=== PATIENT | female | born 1995 | race Caucasian/White ===

== ENCOUNTER 2018-03-10 18:29 | Emergency (ER) | payer MEDICAID ==
[2018-03-10] MEDS ORDERED: Sodium Chloride 0.9% 1,000 ML IV ONE (19:06)
[2018-03-10] MEDS ORDERED: Sodium Chloride 0.9% 10 ML Syringe FLUSH PRN (19:06)
[2018-03-10] MEDS ORDERED: Sodium Chloride 0.9% 2.5 ML Syringe FLUSH PRN (19:06)
--- NOTE | 2018-03-10 19:07 | EDM.PDOC ---
ED HPI GENERAL MEDICAL PROBLEM - General Chief Complaint: Headache Time Seen by Provider: 03/10/18 19:23 Source of Information: Reports: Patient History Limitations: Reports: No Limitations - History of Present Illness INITIAL COMMENTS - FREE TEXT/NARRATIVE: HISTORY AND PHYSICAL: History of present illness: Patient is a 22-year-old female here with concern that she has meningitis. She states that over the past 2 weeks she has not been feeling well, has had headaches, neck pain, back pain, nausea, chills. She notes she also had a little bit of a cough, runny nose and sinus congestion. She reports that she has had a few intermittent episodes of vomiting and states she vomited twice today. She states that today she was at work and started feeling lightheaded and a headache coming on and states she passed out. She denies any head injury. She denies any abdominal pain, chest pain, shortness of breath, fevers. Patient states she is UTD on meningococcal vaccination. Review of systems: As per history of present illness and below otherwise all systems reviewed and negative. Past medical history: As per history of present illness and as reviewed below otherwise noncontributory. Surgical history: As per history of present illness and as reviewed below otherwise noncontributory. Social history: No reported history of drug or alcohol abuse. Family history: As per history of present illness and as reviewed below otherwise noncontributory. Physical exam: General: Patient sitting comfortably in no acute distress and nontoxic appearing HEENT: Atraumatic, normocephalic, pupils reactive, negative for conjunctival pallor or scleral icterus, mucous membranes moist, throat clear, neck supple, nontender, trachea midline. No meningeal signs. Lungs: Clear to auscultation, breath sounds equal bilaterally, chest nontender. Heart: S1S2, regular, negative for clicks, rubs, or overt murmur. Abdomen: Soft, nondistended, nontender. Negative for masses or hepatosplenomegaly. Negative for costovertebral tenderness. Pelvis: Stable nontender. Genitourinary: Deferred. Rectal: Deferred. Spine: Normal flexion, extension, and rotation of cervical spine. Tender to palpation of cervical and thoracic paraspinals. No spinous process tenderness Extremities: Atraumatic, negative for cords or calf pain. Neurovascular unremarkable. Neuro: Awake, alert, oriented. Cranial nerves II through XII unremarkable. Cerebellum unremarkable. Motor and sensory unremarkable throughout. Exam nonfocal. Notes: Diagnostics: CBC, CMP, troponin, UA, UC, urine hcg, EKG Therapeutics: 1L NS IV 30mg Toradol IV 4mg Zofran IV Prescriptions: Flexeril Diclofenac Impression: Headache, cervical and thoracic muscle spasms, viral URI, vasovagal syncope Plan: 1. Take medications as instructed. 2. Follow up with primary care provider 3. Return to ED as needed as discussed Definitive disposition and diagnosis as appropriate pending reevaluation and review of above. head Pain Score (Numeric/FACES): 7 Back Pain Score (Numeric/FACES): 4 - Related Data Allergies Allergy/AdvReac Type Severity Reaction Status Date / Time No Known Allergies Allergy Verified 03/10/18 18:58 Home Meds: Home Meds Ascorbic Acid [Vitamin C] 1 tab PO DAILY 03/10/18 [History] Cyanocobalamin (Vitamin B12) [Vitamin B12] 1 tab PO DAILY 03/10/18 [History] Mv-Min/Iron/Folic/Calcium/Vitk [Women's Multivitamin Tablet] 1 tab PO DAILY [History] Social & Family History - Tobacco Use Smoking Status *Q: Former Smoker Used Tobacco, but Quit: Yes Month/Year Tobacco Last Used: 1 - Recreational Drug Use Recreational Drug Use: No ED ROS GENERAL - Review of Systems Review Of Systems: ROS reveals no pertinent complaints other than HPI. - Physical Exam Exam: See Below (see dictation) Course - Vital Signs Last Recorded V/S: Last Vital Signs Temp 36.6 C 03/10/18 18:55 Pulse 66 03/10/18 18:55 Resp 18 03/10/18 18:55 BP 109/59 L 03/10/18 18:55 Pulse Ox 99 03/10/18 18:55 - Orders/Labs/Meds Orders: Active Orders 24 hr Category Date Time Status EKG Documentation Completion [RC] STAT Care 03/10/18 19:06 Active CULTURE STREP A CONFIRMATION [] Stat Lab 03/10/18 19:30 Results STREP SCRN A RAPID W CULT CONF [RM] Stat Lab 03/10/18 19:30 Results Sodium Chloride 0.9% [Saline Flush] Med 03/10/18 19:06 Active 10 ml FLUSH ASDIRECTED PRN Sodium Chloride 0.9% [Saline Flush] Med 03/10/18 19:06 Active 2.5 ml FLUSH ASDIRECTED PRN Saline Lock Insert [OM.PC] Stat Oth 03/10/18 19:06 Ordered Medication Orders Sodium Chloride (Saline Flush) 10 ml FLUSH ASDIRECTED PRN PRN Reason: Keep Vein Open Sodium Chloride (Saline Flush) 2.5 ml FLUSH ASDIRECTED PRN PRN Reason: Keep Vein Open Labs: Laboratory Tests 03/10/18 03/10/18 03/10/18 Range/Units 19:30 19:30 19:30 WBC 6.56 (4.0-11.0) K/uL RBC 4.75 (4.30-5.90) M/uL Hgb 12.4 (12.0-16.0) g/dL Hct 38.2 (36.0-46.0) % MCV 80.4 (80.0-98.0) fL MCH 26.1 L (27.0-32.0) pg MCHC 32.5 (31.0-37.0) g/dL RDW Std Deviation 35.0 (28.0-62.0) fl RDW Coeff of Kamaljit 12 (11.0-15.0) % Plt Count 216 (150-400) K/uL MPV 10.30 (7.40-12.00) fL Neut % (Auto) 47.1 L (48.0-80.0) % Lymph % (Auto) 43.0 H (16.0-40.0) % [place] % (Auto) 8.4 (0.0-15.0) % Eos % (Auto) 1.2 (0.0-7.0) % Baso % (Auto) 0.3 (0.0-1.5) % Neut # (Auto) 3.1 (1.4-5.7) K/uL Lymph # (Auto) 2.8 H (0.6-2.4) K/uL [place] # (Auto) 0.6 (0.0-0.8) K/uL Eos # (Auto) 0.1 (0.0-0.7) K/uL Baso # (Auto) 0.0 (0.0-0.1) K/uL Nucleated RBC % 0.0 /100WBC Nucleated RBCs # 0 K/uL Sodium 139 (136-145) mmol/L Potassium 3.9 (3.5-5.1) mmol/L Chloride 104 (98-107) mmol/L Carbon Dioxide 24.5 (21.0-32.0) mmol/L BUN 10 (7.0-18.0) mg/dL Creatinine 0.7 (0.6-1.0) mg/dL Est Cr Clr Drug Dosing 95.93 mL/min Estimated GFR (MDRD) > 60.0 ml/min Glucose 87 (74-106) mg/dL Calcium 8.9 (8.5-10.1) mg/dL Total Bilirubin 0.4 (0.2-1.0) mg/dL AST 21 (15-37) IU/L ALT 30 (14-63) IU/L Alkaline Phosphatase 47 (46-116) U/L Troponin I < 0.050 (0.000-0.056) ng/mL Total Protein 7.4 (6.4-8.2) g/dL Albumin 3.6 (3.4-5.0) g/dL Globulin 3.8 H (2.0-3.5) g/dL Albumin/Globulin Ratio 1.0 L (1.3-2.8) Urine Color YELLOW Urine Appearance CLEAR Urine pH 7.0 (5.0-8.0) Ur Specific [place] 1.020 (1.001-1.035) Urine Protein NEGATIVE (NEGATIVE) mg/dL Urine Glucose (UA) NEGATIVE (NEGATIVE) mg/dL Urine Ketones NEGATIVE (NEGATIVE) mg/dL Urine Occult Blood NEGATIVE (NEGATIVE) Urine Nitrite NEGATIVE (NEGATIVE) Urine Bilirubin NEGATIVE (NEGATIVE) Urine Urobilinogen 0.2 (<2.0) EU/dL Ur Leukocyte Esterase NEGATIVE (NEGATIVE) Urine RBC 0-1 (0-2/HPF) Urine WBC 0-2 (0-5/HPF) Ur Epithelial Cells MODERATE (NONE-FEW) Urine Bacteria FEW (NEGATIVE) Urine Mucus MODERATE (NONE-MOD) Urine HCG, Qual (NEGATIVE) 03/10/18 Range/Units 19:30 WBC (4.0-11.0) K/uL RBC (4.30-5.90) M/uL Hgb (12.0-16.0) g/dL Hct (36.0-46.0) % MCV (80.0-98.0) fL MCH (27.0-32.0) pg MCHC (31.0-37.0) g/dL RDW Std Deviation (28.0-62.0) fl RDW Coeff of Kamaljit (11.0-15.0) % Plt Count (150-400) K/uL MPV (7.40-12.00) fL Neut % (Auto) (48.0-80.0) % Lymph % (Auto) (16.0-40.0) % [place] % (Auto) (0.0-15.0) % Eos % (Auto) (0.0-7.0) % Baso % (Auto) (0.0-1.5) % Neut # (Auto) (1.4-5.7) K/uL Lymph # (Auto) (0.6-2.4) K/uL [place] # (Auto) (0.0-0.8) K/uL Eos # (Auto) (0.0-0.7) K/uL Baso # (Auto) (0.0-0.1) K/uL Nucleated RBC % /100WBC Nucleated RBCs # K/uL Sodium (136-145) mmol/L Potassium (3.5-5.1) mmol/L Chloride (98-107) mmol/L Carbon Dioxide (21.0-32.0) mmol/L BUN (7.0-18.0) mg/dL Creatinine (0.6-1.0) mg/dL Est Cr Clr Drug Dosing mL/min Estimated GFR (MDRD) ml/min Glucose (74-106) mg/dL Calcium (8.5-10.1) mg/dL Total Bilirubin (0.2-1.0) mg/dL AST (15-37) IU/L ALT (14-63) IU/L Alkaline Phosphatase (46-116) U/L Troponin I (0.000-0.056) ng/mL Total Protein (6.4-8.2) g/dL Albumin (3.4-5.0) g/dL Globulin (2.0-3.5) g/dL Albumin/Globulin Ratio (1.3-2.8) Urine Color Urine Appearance Urine pH (5.0-8.0) Ur Specific [place] (1.001-1.035) Urine Protein (NEGATIVE) mg/dL Urine Glucose (UA) (NEGATIVE) mg/dL Urine Ketones (NEGATIVE) mg/dL Urine Occult Blood (NEGATIVE) Urine Nitrite (NEGATIVE) Urine Bilirubin (NEGATIVE) Urine Urobilinogen (<2.0) EU/dL Ur Leukocyte Esterase (NEGATIVE) Urine RBC (0-2/HPF) Urine WBC (0-5/HPF) Ur Epithelial Cells (NONE-FEW) Urine Bacteria (NEGATIVE) Urine Mucus (NONE-MOD) Urine HCG, Qual NEGATIVE (NEGATIVE) Meds: Medications Generic Name Dose Route Start Last Admin Trade Name Freq PRN Reason Stop Dose Admin Sodium Chloride 10 ml 03/10/18 19:06 Saline Flush FLUSH ASDIRECTED PRN Keep Vein Open Sodium Chloride 2.5 ml 03/10/18 19:06 Saline Flush FLUSH ASDIRECTED PRN Keep Vein Open Discontinued Medications Generic Name Dose Route Start Last Admin Trade Name Freq PRN Reason Stop Dose Admin Sodium Chloride 1,000 mls @ 999 mls/hr 03/10/18 19:06 03/10/18 19:45 Normal Saline IV 03/10/18 20:06 999 mls/hr STAT ONE Administration Ketorolac Tromethamine 30 mg 03/10/18 19:47 Toradol IVPUSH 03/10/18 19:48 ONETIME ONE Ondansetron HCl 4 mg 03/10/18 19:47 Zofran IVPUSH 03/10/18 19:48 ONETIME ONE Departure - Departure Time of Disposition: 20:26 Disposition: Home, Self-Care 01 Condition: Good Clinical Impression: Headache, Cervical paraspinal muscle spasm, Spasm of thoracic back muscle, Viral URI, Vasovagal syncope - Discharge Information Referrals: PCP,None [Primary Care Provider] - Forms: ED Department Discharge Additional Instructions: The following information is given to patients seen in the emergency department who are being discharged to home. This information is to outline your options for follow-up care. We provide all patients seen in our emergency department with a follow-up referral. The need for follow-up, as well as the timing and circumstances, are variable depending upon the specifics of your emergency department visit. If you don't have a primary care physician on staff, we will provide you with a referral. We always advise you to contact your personal physician following an emergency department visit to inform them of the circumstance of the visit and for follow-up with them and/or the need for any referrals to a consulting specialist. The emergency department will also refer you to a specialist when appropriate. This referral assures that you have the opportunity for follow-up care with a specialist. All of these measure are taken in an effort to provide you with optimal care, which includes your follow-up. Under all circumstances we always encourage you to contact your private physician who remains a resource for coordinating your care. When calling for follow-up care, please make the office aware that this follow-up is from your recent emergency room visit. If for any reason you are refused follow-up, please contact the [facility] Emergency Department at and asked to speak to the emergency department charge nurse. [facility] [address] [place] [id number] [facility] [address] [place] [id number] 1. Take medications as instructed. 2. Follow up with primary care provider 3. Return to ED as needed as discussed - My Orders Last 24 Hours: My Active Orders 03/10/18 19:06 EKG Documentation Completion [RC] STAT Sodium Chloride 0.9% [Saline Flush] 10 ml FLUSH ASDIRECTED PRN Sodium Chloride 0.9% [Saline Flush] 2.5 ml FLUSH ASDIRECTED PRN Saline Lock Insert [OM.PC] Stat 03/10/18 19:30 CULTURE STREP A CONFIRMATION [RM] Stat STREP SCRN A RAPID W CULT CONF [RM] Stat - Assessment/Plan Last 24 Hours: My Active Orders 03/10/18 19:06 EKG Documentation Completion [RC] STAT Sodium Chloride 0.9% [Saline Flush] 10 ml FLUSH ASDIRECTED PRN Sodium Chloride 0.9% [Saline Flush] 2.5 ml FLUSH ASDIRECTED PRN Saline Lock Insert [OM.PC] Stat 03/10/18 19:30 CULTURE STREP A CONFIRMATION [RM] Stat STREP SCRN A RAPID W CULT CONF [RM] Stat
[2018-03-10] MEDS ORDERED: Ondansetron 4 MG/2 ML SDV IVPUSH ONE (19:47)
[2018-03-10] MEDS ORDERED: Ketorolac 30 MG/ML SDV IVPUSH ONE (19:47)
[2018-03-10 20:10] LABS: CHLORIDE,CL 104 mmol/L (98-107); SODIUM,NA 139 mmol/L (136-145)
== END 2018-03-10 21:00 | disposition home or self-care (01) ==
LOC: MW.ED 18:29
DX: M62.830 Muscle spasm of back (principal); M62.838 Other muscle spasm; J06.9 Acute upper respiratory infection, unspecified; R55 Syncope and collapse; Z79.899 Other long term (current) drug therapy; Z87.891 Personal history of nicotine dependence
CPT/HCPCS: 80053; 81001; 81025; 84484; 85025; 87081; 87804; 87880; 93005; 96361; 96374; 96375; 99284; J1885; J2405; J7040; 99283

== ENCOUNTER 2018-06-24 11:28 | Emergency (ER) | payer MEDICAID ==
--- NOTE | 2018-06-24 13:03 | EDM.PDOC ---
ED HPI GENERAL MEDICAL PROBLEM - General Chief Complaint: ENT Problem Stated Complaint: SORE THROAT Time Seen by Provider: 06/24/18 12:58 Source of Information: Reports: Patient History Limitations: Reports: No Limitations - History of Present Illness INITIAL COMMENTS - FREE TEXT/NARRATIVE: History of present illness: []Patient has frequent throat infections and is requesting a referral to get her tonsils out. For the past 4 days she's had a sore throat that is not subsiding. She denies any difficulty breathing has no vocal changes or difficulty swallowing. Review of systems: As per history of present illness and below otherwise all systems reviewed and negative. Past medical history: As per history of present illness and as reviewed below otherwise noncontributory. Surgical history: As per history of present illness and as reviewed below otherwise noncontributory. Social history: No reported history of drug or alcohol abuse. Family history: As per history of present illness and as reviewed below otherwise noncontributory. Physical exam: General: Well developed, well nourished in NAD HEENT: Atraumatic, normocephalic, pupils reactive, negative for conjunctival pallor or scleral icterus, mucous membranes moist, throat erythematous with no exudate, neck supple, nontender, trachea midline. No stridor Lungs: Clear to auscultation, breath sounds equal bilaterally, chest nontender. Heart: S1S2, regular, negative for clicks, rubs, or JVD. Abdomen: NABS, Soft, nondistended, nontender. Negative for masses or hepatosplenomegaly. Negative for costovertebral tenderness. Pelvis: Stable nontender. Genitourinary: Deferred. Rectal: Deferred. Extremities: Atraumatic, negative for cords or calf pain. Neurovascular unremarkable. Neuro: Awake, alert, oriented. Cranial nerves II through XII unremarkable. Cerebellum unremarkable. Motor and sensory unremarkable throughout. Exam nonfocal. Skin:warm and dry Diagnostics: Rapid strep negative Therapeutics: None ED Course: Unremarkable Impression: Acute pharyngitis likely viral Prescriptions: None Plan: Salt water gargles, throat lozenges, Tylenol Motrin for pain, follow-up with ENT return to ER if symptoms worsen or change. Definitive disposition and diagnosis as appropriate pending reevaluation and review of above. Throat Pain Score (Numeric/FACES): 8 - Related Data Allergies Allergy/AdvReac Type Severity Reaction Status Date / Time No Known Allergies Allergy Verified 06/24/18 12:18 Home Meds: Home Meds Ascorbic Acid [Vitamin C] 1 tab PO DAILY 03/10/18 [History] Cyanocobalamin (Vitamin B12) [Vitamin B12] 1 tab PO DAILY 03/10/18 [History] Cyclobenzaprine [Flexeril] 10 mg PO BEDTIME #10 tab 03/10/18 [Rx] Diclofenac Sodium [Voltaren] 50 mg PO BID #30 tab.ec 03/10/18 [Rx] Mv-Min/Iron/Folic/Calcium/Vitk [Women's Multivitamin Tablet] 1 tab PO DAILY [History] Past Medical History - Past Health History Medical/Surgical History: Denies Medical/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 ED EXAM, ENT - Physical Exam Exam: See Below (See history of present illness) Course - Vital Signs Last Recorded V/S: Last Vital Signs Temp 98.0 F 06/24/18 12:15 Pulse 77 06/24/18 12:15 Resp 18 06/24/18 12:15 BP 117/59 L 06/24/18 12:15 Pulse Ox 100 06/24/18 12:15 - Orders/Labs/Meds Orders: Active Orders 24 hr Category Date Time Status CULTURE STREP A CONFIRMATION [] Stat Lab 06/24/18 12:18 Results STREP SCRN A RAPID W CULT CONF [] Stat Lab 06/24/18 12:18 Results Departure - Departure Time of Disposition: 13:02 Disposition: Home, Self-Care 01 Condition: Good Clinical Impression: Acute pharyngitis Qualifiers: Pharyngitis/tonsillitis etiology: unspecified etiology Qualified Code(s): J02.9 - Acute pharyngitis, unspecified - Discharge Information *PRESCRIPTION DRUG MONITORING PROGRAM REVIEWED*: No *COPY OF PRESCRIPTION DRUG MONITORING REPORT IN PATIENT ANUPAM: No Instructions: Pharyngitis Referrals: PCP,Unknown [Primary Care Provider] - Ann Del Castillo MD [Physician] - (Next available appointment) Forms: ED Department Discharge Additional Instructions: The following information is given to patients seen in the emergency department who are being discharged to home. This information is to outline your options for follow-up care. We provide all patients seen in our emergency department with a follow-up referral. The need for follow-up, as well as the timing and circumstances, are variable depending upon the specifics of your emergency department visit. If you don't have a primary care physician on staff, we will provide you with a referral. We always advise you to contact your personal physician following an emergency department visit to inform them of the circumstance of the visit and for follow-up with them and/or the need for any referrals to a consulting specialist. The emergency department will also refer you to a specialist when appropriate. This referral assures that you have the opportunity for follow-up care with a specialist. All of these measure are taken in an effort to provide you with optimal care, which includes your follow-up. Under all circumstances we always encourage you to contact your private physician who remains a resource for coordinating your care. When calling for follow-up care, please make the office aware that this follow-up is from your recent emergency room visit. If for any reason you are refused follow-up, please contact the [facility] Emergency Department at and asked to speak to the emergency department charge nurse. [facility] [address] [place] [id number]
== END 2018-06-24 13:13 | disposition home or self-care (01) ==
LOC: MW.ED 11:28
DX: J02.9 Acute pharyngitis, unspecified (principal); Z79.899 Other long term (current) drug therapy; Z87.891 Personal history of nicotine dependence
CPT/HCPCS: 87081; 87880-QW; 99283

== ENCOUNTER 2018-10-20 15:54 | Emergency (ER) | payer MEDICAID ==
[2018-10-20] MEDS ORDERED: Sodium Chloride 0.9% 10 ML Syringe FLUSH PRN (16:06)
[2018-10-20] MEDS ORDERED: Sodium Chloride 0.9% 1,000 ML IV ONE ×2 (16:06→17:25)
[2018-10-20] MEDS ORDERED: Ondansetron 4 MG/2 ML SDV IVPUSH ONE ×2 (16:06→17:09)
[2018-10-20] MEDS ORDERED: Sodium Chloride 0.9% 2.5 ML Syringe FLUSH PRN (16:06)
[2018-10-20] MEDS ORDERED: Morphine 4 MG/ML Syringe IVPUSH ONE (16:06)
--- NOTE | 2018-10-20 16:13 | EDM.PDOC ---
ED HPI GENERAL MEDICAL PROBLEM - General Chief Complaint: Gastrointestinal Problem Stated Complaint: VOMITING, HEADACHE, SHAKES, DIARRHEA Time Seen by Provider: 10/20/18 15:56 Source of Information: Reports: Patient History Limitations: Reports: No Limitations - History of Present Illness INITIAL COMMENTS - FREE TEXT/NARRATIVE: History of present illness: []Patient has had 3 days of nonbloody vomiting, green diarrhea with sharp, crampy abdominal pain, migraine headache, fevers and chills. She has not tried to eat or drink anything since last night at 9 PM. Patient states she was recently diagnosed with BV Tatiana Agustin had an ovarian cyst rupture while she was having imaging. She states she completed the antibiotics not having any abnormal discharge at this time. Review of systems: As per history of present illness and below otherwise all systems reviewed and negative. Past medical history: As per history of present illness and as reviewed below otherwise noncontributory. Surgical history: As per history of present illness and as reviewed below otherwise noncontributory. Social history: No reported history of drug or alcohol abuse. Family history: As per history of present illness and as reviewed below otherwise noncontributory. Physical exam: General: Well developed, well nourished in NAD HEENT: Atraumatic, normocephalic, pupils reactive, negative for conjunctival pallor or scleral icterus, mucous membranes moist, throat clear, neck supple, nontender, trachea midline. Lungs: Clear to auscultation, breath sounds equal bilaterally, chest nontender. Heart: S1S2, regular, negative for clicks, rubs, or JVD. Abdomen: NABS, Soft, nondistended, diffuse tenderness worse right lower quadrant without rebound or guarding. Negative for masses or hepatosplenomegaly. Negative for costovertebral tenderness. Pelvis: Stable nontender. Genitourinary: No cervical motion tenderness there is moderate discharge Rectal: Deferred. Extremities: Atraumatic, negative for cords or calf pain. Neurovascular unremarkable. Neuro: Awake, alert, oriented. Cranial nerves II through XII unremarkable. Cerebellum unremarkable. Motor and sensory unremarkable throughout. Exam nonfocal. Skin:warm and dry Diagnostics: CBC, chemistry, lipase, UA, GC, wet prep Therapeutics: Morphine, Zofran, IV fluids ED Course: Stable Impression: Bacterial vaginosis Prescriptions: Flagyl Plan: Follow-up women's health. Definitive disposition and diagnosis as appropriate pending reevaluation and review of above. 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: Musculoskeletal History: Reports: None Neurological History: Reports: None Psychiatric History: Reports: None Endocrine/Metabolic History: Reports: None Hematologic History: Reports: None Immunologic History: Reports: None Oncologic (Cancer) History: Reports: None Dermatologic History: Reports: None - Past Surgical History Head Surgeries/Procedures: Reports: None HEENT Surgical History: Reports: Oral Surgery Cardiovascular Surgical History: Reports: None Respiratory Surgical History: Reports: None GI Surgical History: Reports: None Female Surgical History: Reports: Section Endocrine Surgical History: Reports: None Neurological Surgical History: Reports: None Musculoskeletal Surgical History: Reports: None Oncologic Surgical History: Reports: None Dermatological Surgical History: Reports: None Social & Family History - Family History Family Medical History: Noncontributory - Tobacco Use Smoking Status *Q: Never Smoker - Caffeine Use Caffeine Use: Reports: Energy Drinks - Recreational Drug Use Recreational Drug Use: No ED ROS GENERAL - Review of Systems Review Of Systems: ROS reveals no pertinent complaints other than HPI. ED EXAM, GI/ABD - Physical Exam Exam: See Below (See history of present illness) Course - Vital Signs Last Recorded V/S: Last Vital Signs Temp 97.3 F 10/20/18 17:28 Pulse 71 10/20/18 18:13 Resp 16 10/20/18 18:13 BP 107/54 L 10/20/18 18:13 Pulse Ox 96 10/20/18 18:13 - Orders/Labs/Meds Orders: Active Orders 24 hr Category Date Time Status NPO [Nothing Per Oral Diet] [DIET] Diet 10/21/18 Breakfast Active CHLAMYDIA AND GONORRHEA BY [facility] Stat Lab 10/20/18 17:10 Received Sodium Chloride 0.9% [Saline Flush] Med 10/20/18 16:06 Active 10 ml FLUSH ASDIRECTED PRN Sodium Chloride 0.9% [Saline Flush] Med 10/20/18 16:06 Active 2.5 ml FLUSH ASDIRECTED PRN Saline Lock Insert [OM.PC] Stat Oth 10/20/18 16:06 Ordered Medication Orders Sodium Chloride (Saline Flush) 10 ml FLUSH ASDIRECTED PRN PRN Reason: Keep Vein Open Last Admin: 10/20/18 17:26 Dose: 10 ml Sodium Chloride (Saline Flush) 2.5 ml FLUSH ASDIRECTED PRN PRN Reason: Keep Vein Open Last Admin: 10/20/18 17:26 Dose: 2.5 ml Labs: Laboratory Tests 10/20/18 10/20/18 10/20/18 Range/Units 16:13 16:13 16:14 WBC 6.42 (4.0-11.0) K/uL RBC 4.64 (4.30-5.90) M/uL Hgb 12.1 (12.0-16.0) g/dL Hct 37.7 (36.0-46.0) % MCV 81.3 (80.0-98.0) fL MCH 26.1 L (27.0-32.0) pg MCHC 32.1 (31.0-37.0) g/dL RDW Std Deviation 38.4 (28.0-62.0) fl RDW Coeff of Kamaljit 13 (11.0-15.0) % Plt Count 229 (150-400) K/uL MPV 10.50 (7.40-12.00) fL Neut % (Auto) 71.3 (48.0-80.0) % Lymph % (Auto) 19.3 (16.0-40.0) % Angelina % (Auto) 9.0 (0.0-15.0) % Eos % (Auto) 0.2 (0.0-7.0) % Baso % (Auto) 0.2 (0.0-1.5) % Neut # (Auto) 4.6 (1.4-5.7) K/uL Lymph # (Auto) 1.2 (0.6-2.4) K/uL Angelina # (Auto) 0.6 (0.0-0.8) K/uL Eos # (Auto) 0.0 (0.0-0.7) K/uL Baso # (Auto) 0.0 (0.0-0.1) K/uL Nucleated RBC % 0.0 /100WBC Nucleated RBCs # 0 K/uL Sodium 138 (136-145) mmol/L Potassium 3.5 (3.5-5.1) mmol/L Chloride 101 (98-107) mmol/L Carbon Dioxide 25.9 (21.0-32.0) mmol/L BUN 14 (7.0-18.0) mg/dL Creatinine 0.9 (0.6-1.0) mg/dL Est Cr Clr Drug Dosing 77.55 mL/min Estimated GFR (MDRD) > 60.0 ml/min Glucose 104 (74-106) mg/dL Calcium 9.2 (8.5-10.1) mg/dL Total Bilirubin 0.3 (0.2-1.0) mg/dL AST 16 (15-37) IU/L ALT 19 (14-63) IU/L Alkaline Phosphatase 41 L (46-116) U/L Total Protein 7.8 (6.4-8.2) g/dL Albumin 3.5 (3.4-5.0) g/dL Globulin 4.3 H (2.6-4.0) g/dL Albumin/Globulin Ratio 0.8 L (0.9-1.6) Lipase 107 (73-393) U/L Urine Color YELLOW Urine Appearance CLEAR Urine pH 6.0 (5.0-8.0) Ur Specific Montgomery >= 1.030 (1.001-1.035) Urine Protein TRACE H (NEGATIVE) mg/dL Urine Glucose (UA) NEGATIVE (NEGATIVE) mg/dL Urine Ketones 40 H (NEGATIVE) mg/dL Urine Occult Blood MODERATE H (NEGATIVE) Urine Nitrite NEGATIVE (NEGATIVE) Urine Bilirubin NEGATIVE (NEGATIVE) Urine Urobilinogen 0.2 (<2.0) EU/dL Ur Leukocyte Esterase NEGATIVE (NEGATIVE) Urine RBC 0-2 (0-2/HPF) Urine WBC 0-1 (0-5/HPF) Ur Epithelial Cells OCCASIONAL (NONE-FEW) Calcium Oxalate Crystal FEW (NEGATIVE) Urine Bacteria RARE (NEGATIVE) Urine Mucus MODERATE (NONE-MOD) Urine HCG, Qual (NEGATIVE) Zaina species DNA (NEGATIVE) Gardnerella DNA Probe (NEGATIVE) Trichomonas DNA Probe (NEGATIVE) 10/20/18 10/20/18 Range/Units 16:14 17:10 WBC (4.0-11.0) K/uL RBC (4.30-5.90) M/uL Hgb (12.0-16.0) g/dL Hct (36.0-46.0) % MCV (80.0-98.0) fL MCH (27.0-32.0) pg MCHC (31.0-37.0) g/dL RDW Std Deviation (28.0-62.0) fl RDW Coeff of Kamaljit (11.0-15.0) % Plt Count (150-400) K/uL MPV (7.40-12.00) fL Neut % (Auto) (48.0-80.0) % Lymph % (Auto) (16.0-40.0) % Angelina % (Auto) (0.0-15.0) % Eos % (Auto) (0.0-7.0) % Baso % (Auto) (0.0-1.5) % Neut # (Auto) (1.4-5.7) K/uL Lymph # (Auto) (0.6-2.4) K/uL Angelina # (Auto) (0.0-0.8) K/uL Eos # (Auto) (0.0-0.7) K/uL Baso # (Auto) (0.0-0.1) K/uL Nucleated RBC % /100WBC Nucleated RBCs # K/uL Sodium (136-145) mmol/L Potassium (3.5-5.1) mmol/L Chloride (98-107) mmol/L Carbon Dioxide (21.0-32.0) mmol/L BUN (7.0-18.0) mg/dL Creatinine (0.6-1.0) mg/dL Est Cr Clr Drug Dosing mL/min Estimated GFR (MDRD) ml/min Glucose (74-106) mg/dL Calcium (8.5-10.1) mg/dL Total Bilirubin (0.2-1.0) mg/dL AST (15-37) IU/L ALT (14-63) IU/L Alkaline Phosphatase (46-116) U/L Total Protein (6.4-8.2) g/dL Albumin (3.4-5.0) g/dL Globulin (2.6-4.0) g/dL Albumin/Globulin Ratio (0.9-1.6) Lipase (73-393) U/L Urine Color Urine Appearance Urine pH (5.0-8.0) Ur Specific Montgomery (1.001-1.035) Urine Protein (NEGATIVE) mg/dL Urine Glucose (UA) (NEGATIVE) mg/dL Urine Ketones (NEGATIVE) mg/dL Urine Occult Blood (NEGATIVE) Urine Nitrite (NEGATIVE) Urine Bilirubin (NEGATIVE) Urine Urobilinogen (<2.0) EU/dL Ur Leukocyte Esterase (NEGATIVE) Urine RBC (0-2/HPF) Urine WBC (0-5/HPF) Ur Epithelial Cells (NONE-FEW) Calcium Oxalate Crystal (NEGATIVE) Urine Bacteria (NEGATIVE) Urine Mucus (NONE-MOD) Urine HCG, Qual NEGATIVE (NEGATIVE) Zaina species DNA NEGATIVE (NEGATIVE) Gardnerella DNA Probe POSITIVE H (NEGATIVE) Trichomonas DNA Probe NEGATIVE (NEGATIVE) Meds: Medications Generic Name Dose Route Start Last Admin Trade Name Freq PRN Reason Stop Dose Admin Sodium Chloride 10 ml 10/20/18 16:06 10/20/18 17:26 Saline Flush FLUSH 10 ml ASDIRECTED PRN Administration Keep Vein Open Sodium Chloride 2.5 ml 10/20/18 16:06 10/20/18 17:26 Saline Flush FLUSH 2.5 ml ASDIRECTED PRN Administration Keep Vein Open Discontinued Medications Generic Name Dose Route Start Last Admin Trade Name Freq PRN Reason Stop Dose Admin Sodium Chloride 1,000 mls @ 999 mls/hr 10/20/18 16:06 10/20/18 16:21 Normal Saline IV 10/20/18 17:06 999 mls/hr .Bolus ONE Administration Sodium Chloride 1,000 mls @ 999 mls/hr 10/20/18 17:25 10/20/18 17:25 Normal Saline IV 10/20/18 18:25 999 mls/hr .Bolus ONE Administration Ketorolac Tromethamine 30 mg 10/20/18 17:09 10/20/18 17:19 Toradol IVPUSH 10/20/18 17:10 30 mg ONETIME ONE Administration Morphine Sulfate 4 mg 10/20/18 16:06 10/20/18 16:24 Morphine IVPUSH 10/20/18 16:07 4 mg ONETIME ONE Administration Ondansetron HCl 4 mg 10/20/18 16:06 10/20/18 16:21 Zofran IVPUSH 10/20/18 16:07 4 mg ONETIME ONE Administration Ondansetron HCl 4 mg 10/20/18 17:09 10/20/18 17:22 Zofran IVPUSH 10/20/18 17:10 4 mg ONETIME ONE Administration Departure - Departure Time of Disposition: 18:55 Disposition: Home, Self-Care 01 Condition: Good Clinical Impression: BV (bacterial vaginosis) - Discharge Information *PRESCRIPTION DRUG MONITORING PROGRAM REVIEWED*: No *COPY OF PRESCRIPTION DRUG MONITORING REPORT IN PATIENT ANUPAM: No Prescriptions: metroNIDAZOLE [Flagyl] 500 mg PO Q8H #30 tab Instructions: Diarrhea, Adult, [id number] Referrals: PCP,Unknown [Primary Care Provider] - Forms: ED Department Discharge Additional Instructions: The following information is given to patients seen in the emergency department who are being discharged to home. This information is to outline your options for follow-up care. We provide all patients seen in our emergency department with a follow-up referral. The need for follow-up, as well as the timing and circumstances, are variable depending upon the specifics of your emergency department visit. If you don't have a primary care physician on staff, we will provide you with a referral. We always advise you to contact your personal physician following an emergency department visit to inform them of the circumstance of the visit and for follow-up with them and/or the need for any referrals to a consulting specialist. The emergency department will also refer you to a specialist when appropriate. This referral assures that you have the opportunity for follow-up care with a specialist. All of these measure are taken in an effort to provide you with optimal care, which includes your follow-up. Under all circumstances we always encourage you to contact your private physician who remains a resource for coordinating your care. When calling for follow-up care, please make the office aware that this follow-up is from your recent emergency room visit. If for any reason you are refused follow-up, please contact the [facility] Emergency Department at and asked to speak to the emergency department charge nurse. Take meds as directed, follow up with your primary care physician, return to ER if symptoms worsen or change. [facility] - Women's [facility] [address] [place] [id number] [facility] [address] [place] [id number] - My Orders Last 24 Hours: My Active Orders 10/20/18 16:06 Sodium Chloride 0.9% [Saline Flush] 10 ml FLUSH ASDIRECTED PRN Sodium Chloride 0.9% [Saline Flush] 2.5 ml FLUSH ASDIRECTED PRN Saline Lock Insert [OM.PC] Stat 10/20/18 17:10 CHLAMYDIA AND GONORRHEA BY [facility] Stat 10/21/18 Breakfast NPO [Nothing Per Oral Diet] [DIET] - Assessment/Plan Last 24 Hours: My Active Orders 10/20/18 16:06 Sodium Chloride 0.9% [Saline Flush] 10 ml FLUSH ASDIRECTED PRN Sodium Chloride 0.9% [Saline Flush] 2.5 ml FLUSH ASDIRECTED PRN Saline Lock Insert [OM.PC] Stat 10/20/18 17:10 CHLAMYDIA AND GONORRHEA BY [facility] Stat 10/21/18 Breakfast NPO [Nothing Per Oral Diet] [DIET]
[2018-10-20 16:48] LABS: CHLORIDE,CL 101 mmol/L (98-107); SODIUM,NA 138 mmol/L (136-145)
[2018-10-20] MEDS ORDERED: Ketorolac 30 MG/ML SDV IVPUSH ONE (17:09)
== END 2018-10-20 19:19 | disposition home or self-care (01) ==
LOC: MW.ED 15:54
DX: N76.0 Acute vaginitis (principal)
CPT/HCPCS: 36415; 80053; 81001; 81025; 83690; 85025; 87480; 87491; 87510; 87591; 87660; 96361; 96374; 96375; 96376; 99284; J1885; J2270; J2405; J7040; 99283

== ENCOUNTER 2019-08-19 14:48 | Emergency (ER) | payer MEDICAID ==
--- NOTE | 2019-08-19 16:06 | EDM.PDOC ---
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 Patient states she does not have any symptoms or concerns at this time but is a few days late on her menstrual cycle and wants to have a test. Patient states she took an at home test 5 days ago which was negative. Patient states she has not tried to retake 1 since. Patient denies any vaginal bleeding, discharge, or abdominal pain. Patient denies fever, chills, chest pain, shortness of breath, or cough. Denies headache, neck stiff ness, change in vision, syncope, or near syncope. Denies nausea, vomiting, abdominal pain, diarrhea, constipation, or dysuria. Has not noted any blood in urine or stool. Patient has been eating and drinking appropriately. Review of systems: As per history of present illness and below otherwise all systems reviewed and negative. Past medical history: As per history of present illness and as reviewed below otherwise noncontributory. Surgical history: As per history of present illness and as reviewed below otherwise noncontributory. Social history: See social history for further information Family history: As per history of present illness and as reviewed below otherwise noncontributory. Physical exam: General: Patient is alert, oriented, and in no acute distress. Patient sitting comfortably on exam table. HEENT: Atraumatic, normocephalic, pupils equal and reactive bilaterally, negative for conjunctival pallor or scleral icterus, mucous membranes moist, TMs normal bilaterally, throat clear, neck supple, nontender, trachea midline. No drooling or trismus noted. No meningeal signs. No hot potato voice noted. Lungs: Clear to auscultation, breath sounds equal bilaterally, chest nontender. Heart: S1S2, regular rate and rhythm without overt murmur Abdomen: Soft, nondistended, nontender. Negative for masses or hepatosplenomegaly. Negative for costovertebral tenderness. Pelvis: Stable nontender. Genitourinary: Deferred. Rectal: Deferred. Skin: Intact, warm, dry. No lesions or rashes noted. Extremities: Atraumatic, negative for cords or calf pain. Neurovascular unremarkable. Neuro: Awake, alert, oriented. Cranial nerves II through XII unremarkable. Cerebellum unremarkable. Motor and sensory unremarkable throughout. Exam nonfocal. Notes: Patient denies any symptomatic complaints today and is here with just a desire to have a test. Discussed with patient that she can take an [id number] test again if she desires to know if she is and that we only order test in the ED if we consider it emergent and that she can test for this at home. Voices understanding and is agreeable to plan of care. Denies any further questions or concerns at this time. Diagnostics: None Therapeutics: None Prescription: None Impression: Medical screening exam Plan: 1. You can take an at home [id number] test as discussed. Follow-up with a primary care provider or women's health provider as discussed. Return to the ED as needed and as discussed. Definitive disposition and diagnosis as appropriate pending reevaluation and review of above. - Related Data Allergies Allergy/AdvReac Type Severity Reaction Status Date / Time No Known Allergies Allergy Verified 10/20/18 16:04 Home Meds: Home Meds . 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: Musculoskeletal History: Reports: None Neurological History: Reports: None Psychiatric History: Reports: None Endocrine/Metabolic History: Reports: None Hematologic History: Reports: None Immunologic History: Reports: None Oncologic (Cancer) History: Reports: None Dermatologic History: Reports: None - Past Surgical History Head Surgeries/Procedures: Reports: None HEENT Surgical History: Reports: Oral Surgery Cardiovascular Surgical History: Reports: None Respiratory Surgical History: Reports: None GI Surgical History: Reports: None Female Surgical History: Reports: Section Endocrine Surgical History: Reports: None Neurological Surgical History: Reports: None Musculoskeletal Surgical History: Reports: None Oncologic Surgical History: Reports: None Dermatological Surgical History: Reports: None Social & Family History - Family History Family Medical History: Noncontributory - Tobacco Use Smoking Status *Q: Never Smoker - Caffeine Use Caffeine Use: Reports: Energy Drinks - Recreational Drug Use Recreational Drug Use: No ED ROS GENERAL - Review of Systems Review Of Systems: Comprehensive ROS is negative, except as noted in HPI. ED EXAM, GENERAL - Physical Exam Exam: See Below (see dictation) Course - Vital Signs Last Recorded V/S: Last Vital Signs Temp 98.7 F 08/19/19 15:42 Pulse 78 08/19/19 15:42 Resp 16 08/19/19 15:42 BP 137/52 L 08/19/19 15:42 Pulse Ox 98 08/19/19 15:42 Departure - Departure Time of Disposition: 16:03 Disposition: Home, Self-Care 01 Clinical Impression: Encounter for medical screening examination - Discharge Information Referrals: Chantell Landry NP [Primary Care Provider] - Additional Instructions: The following information is given to patients seen in the emergency department who are being discharged to home. This information is to outline your options for follow-up care. We provide all patients seen in our emergency department with a follow-up referral. The need for follow-up, as well as the timing and circumstances, are variable depending upon the specifics of your emergency department visit. If you don't have a primary care physician on staff, we will provide you with a referral. We always advise you to contact your personal physician following an emergency department visit to inform them of the circumstance of the visit and for follow-up with them and/or the need for any referrals to a consulting specialist. The emergency department will also refer you to a specialist when appropriate. This referral assures that you have the opportunity for follow-up care with a specialist. All of these measure are taken in an effort to provide you with optimal care, which includes your follow-up. Under all circumstances we always encourage you to contact your private physician who remains a resource for coordinating your care. When calling for follow-up care, please make the office aware that this follow-up is from your recent emergency room visit. If for any reason you are refused follow-up, please contact the [facility] Emergency Department at and asked to speak to the emergency department charge nurse. [facility] [address] [place] [id number] [facility] [address] [place] [id number] 1. You can take an at home [id number] test as discussed. Follow-up with a primary care provider or women's health provider as discussed. Return to the ED as needed and as discussed. Sepsis Event Note - Evaluation Sepsis Screening Result: No Definite Risk - Focused Exam Vital Signs: Vital Signs Temp Pulse Resp BP Pulse Ox 08/19/19 15:42 98.7 F 78 16 137/52 L 98 Date Exam was Performed: 08/19/19 Time Exam was Performed: 16:03
== END 2019-08-19 17:00 | disposition left against medical advice (07) ==
LOC: MW.ED 14:48
DX: Z32.02 Encounter for pregnancy test, result negative (principal)
CPT/HCPCS: 99281

== ENCOUNTER 2019-09-11 11:30 | Emergency (ER) | payer MEDICAID, OTHER ==
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
[2019-09-11] MEDS ORDERED: Ketorolac 60 MG/2 ML SDV IM ONE (11:44)
--- NOTE | 2019-09-11 12:09 | CR ---
Left knee: AP, lateral and sunrise patellar views of the left knee were obtained. Comparison: No prior knee exam. Patellofemoral joint appears within normal limits. Joint spaces within the medial and lateral joint compartments are maintained. No joint effusion is seen. No discrete fracture or other bony abnormality is appreciated. Impression: 1. No acute bony abnormality is appreciated. 2. If patient's symptoms appear to be soft tissue, MRI could then be considered if clinically needed. Diagnostic code #1 Study was dictated in MDT
== END 2019-09-11 12:34 | disposition home or self-care (01) ==
LOC: MW.ED 11:30
DX: S83.412A Sprain of medial collateral ligament of left knee, initial encounter (principal); V89.2XXA Person injured in unspecified motor-vehicle accident, traffic, initial encounter
CPT/HCPCS: 73562; 96372; 99283; J1885

== ENCOUNTER 2020-07-26 11:44 | Emergency (ER) | payer MEDICAID ==
[2020-07-26] MEDS ORDERED: Lidocaine/EPINEPHrine/Tetracaine Soln 1 ML TOP ONE (12:14)
[2020-07-26] MEDS ORDERED: Lidocaine 1% with EPINEPHrine 1:100,000 20 ML MDV INJECT ONE (12:17)
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
== END 2020-07-26 14:10 | disposition home or self-care (01) ==
LOC: MW.ED 11:44
DX: O22.40 Hemorrhoids in pregnancy, unspecified trimester (principal); Z86.16 Personal history of COVID-19
CPT/HCPCS: 46083; 99282-25

== ENCOUNTER 2020-09-04 05:26 | Inpatient (IN) | payer MEDICAID ==
[2020-09-04] MEDS ORDERED: ceFAZolin 2 GM in Premix Bag 1 BAG IV ONE (05:33)
[2020-09-04] MEDS ORDERED: Citric Acid/Sodium Citrate Solution 30 ML Cup PO ONE (05:33)
[2020-09-04] MEDS ORDERED: Sodium Chloride 0.9% 2.5 ML Syringe FLUSH PRN (05:33)
[2020-09-04] MEDS ORDERED: Sodium Chloride 0.9% 10 ML SDV IV PRN (05:33)
[2020-09-04] MEDS ORDERED: Sodium Chloride 0.9% 10 ML Syringe FLUSH PRN (05:33)
[2020-09-04] MEDS ORDERED: Oxytocin/0.9 % Sodium Chloride 30 UNIT/500 ML BAG IV SCH (05:45)
[2020-09-04] MEDS: Lactated Ringers 1,000 ML IV SCH ×2 (06:08→07:12)
[2020-09-04] MEDS ORDERED: Morphine PF 10 MG/10 ML SDV ONE (07:10)
[2020-09-04] MEDS ORDERED: Phenylephrine 1% 10 MG/ML SDV ONE (07:15)
[2020-09-04] MEDS ORDERED: Glycopyrrolate 0.2 MG/ML SDV ONE (07:15)
[2020-09-04] MEDS ORDERED: Ketorolac 30 MG/ML SDV ONE (07:15)
[2020-09-04] MEDS ORDERED: Oxytocin 10 Units/1 ML SDV ONE (07:15)
[2020-09-04] MEDS ORDERED: Ondansetron 4 MG/2 ML SDV ONE (07:15)
--- NOTE | 2020-09-04 07:18 | PCM.PREANE ---
Preanesthetic Assessment - Anesthesia/Transfusion/Family Hx Anesthesia History: Prior Anesthesia Without Reaction Family History of Anesthesia Reaction: No Transfusion History: No Prior Transfusion(s) Intubation History: Unknown - Review of Systems General: No Symptoms Pulmonary: No Symptoms Cardiovascular: No Symptoms Gastrointestinal: No Symptoms Neurological: No Symptoms Other: Reports: None - Physical Assessment Height: 5 ft 1.81 in Weight: 72.575 kg ASA Class: 2 Mental Status: Alert & Oriented x3 Airway Class: Mallampati = 2 Dentition: Reports: Normal Dentition Thyro-Mental Finger Breadths: 3 Mouth Opening Finger Breadths: 3 ROM/Head Extension: Full Lungs: Clear to Auscultation, Normal Respiratory Effort Cardiovascular: Regular Rate, Regular Rhythm - Lab Values: Laboratory Last Values WBC 12.01 K/uL (4.0-11.0) H 09/04/20 06:02 RBC 3.65 M/uL (4.30-5.90) L 09/04/20 06:02 Hgb 9.7 g/dL (12.0-16.0) L 09/04/20 06:02 Hct 30.2 % (36.0-46.0) L 09/04/20 06:02 MCV 82.7 fL (80.0-98.0) 09/04/20 06:02 MCH 26.6 pg (27.0-32.0) L 09/04/20 06:02 MCHC 32.1 g/dL (31.0-37.0) 09/04/20 06:02 RDW Std Deviation 40.0 fl (28.0-62.0) 09/04/20 06:02 RDW Coeff of Kamaljit 13 % (11.0-15.0) 09/04/20 06:02 Plt Count 302 K/uL (150-400) 09/04/20 06:02 MPV 10.40 fL (7.40-12.00) 09/04/20 06:02 Nucleated RBC % 0.0 /100WBC 09/04/20 06:02 Nucleated RBCs # 0 K/uL 09/04/20 06:02 - Allergies Allergies/Adverse Reactions: Allergies Allergy/AdvReac Type Severity Reaction Status Date / Time No Known Allergies Allergy Verified 08/29/20 10:13 - Blood Blood Available: No - Anesthesia Plan Pre-Op Medication Ordered: None - Acknowledgements Anesthesia Type Planned: Spinal (general anesthesia back-up plan) Pt an Appropriate Candidate for the Planned Anesthesia: Yes Alternatives and Risks of Anesthesia Discussed w Pt/Guardian: Yes Pt/Guardian Understands and Agrees with Anesthesia Plan: Yes PreAnesthesia Questionnaire - Past Health History Medical/Surgical History: Denies Medical/Surgical History HEENT History: Reports: None Cardiovascular History: Reports: None Other Cardiovascular History: hx tachycardia 2 years ago Respiratory History: Reports: None Other Respiratory History: Just off quarantine for positive COVID-19 exposure. 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 OB/BYN History: October 2015 Musculoskeletal History: Reports: None Other Musculoskeletal History: presently has torn ACL-left knee Neurological History: Reports: None Other Neuro History: "Major Concussion" Psychiatric History: Reports: None Endocrine/Metabolic History: Reports: None Hematologic History: Reports: None Immunologic History: Reports: None Oncologic (Cancer) History: Reports: None Dermatologic History: Reports: None - Infectious Disease History Infectious Disease History: Reports: Chicken Pox - Past Surgical History Head Surgeries/Procedures: Reports: None HEENT Surgical History: Reports: Oral Surgery Cardiovascular Surgical History: Reports: None Respiratory Surgical History: Reports: None GI Surgical History: Reports: None Other GI Surgeries/Procedures: umbilical hernia repair with mesh Female Surgical History: Reports: Section Endocrine Surgical History: Reports: None Neurological Surgical History: Reports: None Musculoskeletal Surgical History: Reports: None Oncologic Surgical History: Reports: None Dermatological Surgical History: Reports: None - SUBSTANCE USE Tobacco Use Status *Q: Former Tobacco User Tobacco Use Within Last Twelve Months: No - HOME MEDS Home Medications: Home Meds Aspirin 81 mg PO DAILY 07/26/20 [History] Iron 65 mg PO BID 07/26/20 [History] Pnv No.95/Ferrous Fum/Folic AC [ Multivitamin Tablet] 1 tab PO DAILY 08/21/20 [History] L.acidoph,Paracasei, B.lactis [Probiotic] 1 tab PO DAILY 08/29/20 [History] - CURRENT (IN HOUSE) MEDS Current Meds: Current Medications Oxytocin/Sodium Chloride (Oxytocin 30 Unit/500 Ml-Ns) 30 unit in 500 mls @ 250 mls/hr IV TITRATE ZITA Lactated Ringer's (Ringers, Lactated) 1,000 mls @ 500 mls/hr IV BOLUS [facility] Last Admin: 09/04/20 07:12 Dose: 500 mls/hr Documented by: Sodium Chloride (Sodium Chloride 0.9% 10 Ml Syringe) 10 ml FLUSH ASDIRECTED PRN PRN Reason: Keep Vein Open Sodium Chloride (Sodium Chloride 0.9% 2.5 Ml Syringe) 2.5 ml FLUSH ASDIRECTED PRN PRN Reason: Keep Vein Open Sodium Chloride (Sodium Chloride 0.9% 10 Ml Sdv) 10 ml IV ASDIRECTED PRN PRN Reason: IV Use Discontinued Medications Citric Acid/Sodium Citrate (Citric Acid/Sodium Citrate Solution 30 Ml Cup) 30 ml PO ONETIME ONE Stop: 09/04/20 05:34 Cefazolin Sodium/Dextrose 2 gm (/ Premix) 50 mls @ 100 mls/hr IV ONETIME ONE Stop: 09/04/20 06:02 Morphine Sulfate (Morphine Pf 10 Mg/10 Ml Sdv) Confirm Administered Dose 10 mg .ROUTE .STK-MED ONE Stop: 09/04/20 07:11
[2020-09-04] MEDS ORDERED: ceFAZolin 1 GM Vial ONE (07:41)
[2020-09-04] MEDS ORDERED: Sodium Chloride 0.9% 20 ML ONE (07:41)
[2020-09-04] MEDS ORDERED: Midazolam 1 MG/ML 2 ML SDV ONE (08:32)
[2020-09-04] MEDS ORDERED: fentaNYL 100 MCG/2 ML SDV IVPUSH PRN (08:36)
[2020-09-04] MEDS ORDERED: Acetaminophen/oxyCODONE 325-5 MG Tab PO PRN ×2 (08:36→09:11)
[2020-09-04] MEDS ORDERED: Ondansetron 4 MG/2 ML SDV IVPUSH PRN ×2 (08:36→09:11)
[2020-09-04] MEDS ORDERED: Naloxone 0.4 MG/ML Syringe IVPUSH PRN (08:36)
[2020-09-04] MEDS ORDERED: Nalbuphine 10 MG/1 ML Vial IVPUSH PRN (08:36)
[2020-09-04] MEDS ORDERED: diphenhydrAMINE 50 MG/ML SDV IVPUSH PRN ×2 (08:36→09:11)
[2020-09-04] MEDS: Ketorolac 30 MG/ML SDV IVPUSH SCH ×3 (08:55→21:13)
[2020-09-04] MEDS ORDERED: Methylergonovine 0.2 MG/1 ML Amp IM PRN (09:11)
[2020-09-04] MEDS ORDERED: Tranexamic Acid 1,000 MG in Sodium Chloride 0.9% 100 ML IV PRN (09:11)
[2020-09-04] MEDS ORDERED: Bisacodyl 10 MG Supp RECTAL PRN (09:11)
[2020-09-04] MEDS ORDERED: Oxytocin 10 Units/1 ML SDV IM PRN (09:11)
[2020-09-04] MEDS ORDERED: Misoprostol 200 MCG Tab RECTAL PRN (09:11)
[2020-09-04] MEDS ORDERED: Oxytocin/Lactated Ringers 30 UNIT/500 ML BAG IV SCH (09:15)
[2020-09-04] MEDS ORDERED: Lactated Ringers 1,000 ML IV SCH (09:15)
--- NOTE | 2020-09-04 09:19 | PCM.OPNOTE ---
- General Post-Op/Procedure Note Date of Surgery/Procedure: 09/04/20 Operative Procedure(s): Repeat lower transverse section Findings: Normal appearing male in cephalic presentation, occiput posterior. Clear amniotic fluid. APGARs 9/9. Weight 3590 grams. Normal appearing uterus, fallopian tubes and ovaries. Pre Op Diagnosis: 1. TIUP at 39w2d gestation. 2. Previous section x1, declines . 3. Anemia of . 4. COVID-19 infection during Post-Op Diagnosis: 1. TIUP at 39w2d gestation. 2. Previous section x1, declines . 3. Anemia of . 4. COVID-19 infection during Anesthesia Technique: Spinal Primary Surgeon: Kaylene Catherine Anesthesia Provider: Jake Burgos Fluid Replacement, Intraop: 500 (received 2,000cc preoperatively) Output, Urine Amount: 150 (clear urine at the end of procedure) EBL in mLs: 600 Complications: None known Condition: Good Free Text/Narrative:: Dictation #[id number]
--- NOTE | 2020-09-04 10:47 | OR ---
SURGEON: KAYLENE CATHERINE MD DATE OF PROCEDURE: 09/04/2020 PREOPERATIVE DIAGNOSES: 1. Term intrauterine at 39 weeks two days' gestation. 2. Previous section x1, declines vaginal after section. 3. Anemia of . 4. COVID-19 infection during . POSTOPERATIVE DIAGNOSES: 1. Term intrauterine at 39 weeks two days' gestation. 2. Previous section x1, declines vaginal after section. 3. Anemia of . 4. COVID-19 infection during . PROCEDURE: Repeat lower transverse section. PRIMARY SURGEON: Kaylene Catherine MD. ANESTHESIA: Spinal epidural. COMPLICATIONS: None known. ESTIMATED BLOOD LOSS: 500 mL. IV FLUIDS: 500 mL crystalloid received intraoperatively. 2000 mL of crystalloid received preoperatively. URINE OUTPUT: 150 mL of clear urine at the end of the procedure. INDICATIONS: A 24-year-old, 5, para 1-0-3-1 at 39 weeks two days' gestation with history of previous section and declines trial of labor after section. FINDINGS: Normal-appearing male infant, cephalic presentation, occiput posterior. Clear amniotic fluid. scores 9/9. Weight 3590 g. Normal-appearing uterus, fallopian tubes, and ovaries. PROCEDURE IN DETAIL: The patient was taken to the operating room where epidural anesthesia was found to be adequate. She was prepped and draped in a sterile fashion in a dorsal supine position with leftward tilt. A skin incision was made with a scalpel and carried down to the underlying layer of fascia which was incised in the midline. The fascial incision was then extended laterally with Moulton scissors bilaterally. The superior aspect of the fascial incision was then grasped with Teresa clamps, elevated, and dissected off the rectus muscles with Abigail. The inferior aspect of the fascial incision was then grasped with Teresa's, and in a likewise manner was elevated and dissected off with Mayos. The patient's peritoneum was then entered sharply with Metzenbaum scissors and extended with good visualization of the bladder. The Sacha O ring was then inserted at this time for retraction. The vesicouterine peritoneum was then identified, grasped with pickups, and entered sharp with Metzenbaum scissors. The bladder flap was then created digitally and retracted. The uterine incision was then created in transverse fashion in the lower uterine segment with a scalpel and extended digitally. The amniotic sac was incidentally AROM'd at this time. Clear fluid was noted. The infant's head delivered atraumatically. Nose and mouth suctioned with bulb. Cord clamped and cut. Handed off to awaiting nursing staff. The placenta was then expressed after obtaining cord blood gases. The uterus was then exteriorized from the abdomen and cleared of all clots and debris. The incision was then repaired in a running-locked fashion with 0 Monocryl. A second suture of the same was then used to imbricate the incision. Excellent hemostasis was noted. The uterus was then returned to the abdomen. Gutters were cleared of all clots and debris. The Sacha O ring was then removed. The peritoneum was then closed in a running fashion with 0 Vicryl. The fascia was then closed with 0 Vicryl in a running fashion. The incision was irrigated. Hemostasis was assured. Subcutaneous tissue was then closed with 0 Vicryl, and the skin was closed with 3-0 Vicryl on a Michael needle. Steri-Strips were then placed over the incision along with a pressure dressing. Sponge, lap, and needle count were correct x2. Prophylactic antibiotics were given prior to the procedure. The patient was taking back to Labor and Delivery room for recovery in stable condition. KB FUNEZ /[id number] GIRMA
[2020-09-04] MEDS: Ferrous Sulfate 325 MG Tab PO SCH (16:30)
[2020-09-04] MEDS: Docusate Sodium 100 MG Cap PO SCH (21:13)
[2020-09-05] MEDS: Ketorolac 30 MG/ML SDV IVPUSH SCH ×2 (03:12→09:12)
--- NOTE | 2020-09-05 08:50 | PCM.PNPP ---
- General Info Date of Service: 09/05/20 Admission Dx/Problem (Free Text): Scheduled repeat lower transverse section Subjective Update: Ambulating about room during rounds. Pain well controlled. Lochia decreasing. Ambulating and voiding without difficulty after Conn catheter was removed. Tolerating regular diet. and pumping going well. Denies fever/chills, lightheadedness/dizziness, nausea or vomiting. - General Info Date of Service: 09/05/20 - Patient Data Vital Signs - Most Recent: Last Vital Signs Temp 97.6 F 09/05/20 04:00 Pulse 85 09/05/20 06:00 Resp 15 09/05/20 06:00 BP 99/48 L 09/05/20 04:00 Pulse Ox 96 09/05/20 06:00 Weight - Most Recent: 160 lb 0.008 oz I&O - Last 24 Hours: Intake & Output 09/04/20 09/05/20 09/05/20 22:59 06:59 14:59 Output Total 240 950 Balance -240 -950 Lab Results - Last 24 Hours: Laboratory Results - last 24 hr 09/05/20 Range/Units 05:31 Hgb 8.4 L (12.0-16.0) g/dL Hct 26.6 L (36.0-46.0) % Med Orders - Current: Current Medications Bisacodyl (Bisacodyl 10 Mg Supp) 10 mg RECTAL ONETIME PRN PRN Reason: Constipation Diphenhydramine HCl (Diphenhydramine 50 Mg/Ml Sdv) 25 mg IVPUSH Q6H PRN PRN Reason: Itching or Nausea Docusate Sodium (Docusate Sodium 100 Mg Cap) 100 mg PO BID [facility] Last Admin: 09/04/20 21:13 Dose: 100 mg Documented by: Emollient Ointment (Lanolin 100% Cream 7 Gm Tube) 0 gm TOP ASDIRECTED PRN PRN Reason: Sore Nipples Fentanyl (Fentanyl 100 Mcg/2 Ml Sdv) 50 mcg IVPUSH Q1H PRN PRN Reason: Pain (severe 7-10) Ferrous Sulfate (Ferrous Sulfate 325 Mg Tab) 325 mg PO BIDMEALS [facility] Last Admin: 09/04/20 16:30 Dose: 325 mg Documented by: Oxytocin/Sodium Chloride (Oxytocin 30 Unit/500 Ml-Ns) 30 unit in 500 mls @ 250 mls/hr IV TITRATE ZITA Lactated Ringer's (Ringers, Lactated) 1,000 mls @ 500 mls/hr IV BOLUS [facility] Last Admin: 09/04/20 07:12 Dose: 500 mls/hr Documented by: Lactated Ringer's (Ringers, Lactated) 1,000 mls @ 125 mls/hr IV ASDIRECTED [facility] Last Admin: 09/04/20 11:00 Dose: 125 mls/hr Documented by: Oxytocin/Lactated Ringer's (Pitocin In Lr 30 Units/500 Ml) 30 unit in 500 mls @ 999 mls/hr IV TITRATE [facility]; Protocol Tranexamic Acid 1,000 mg/ (Sodium Chloride) 110 mls @ 660 mls/hr IV ONETIME PRN PRN Reason: Bleeding Ibuprofen (Ibuprofen 800 Mg Tab) 800 mg PO Q8H PRN PRN Reason: mild pain or fever Ketorolac Tromethamine (Ketorolac 30 Mg/Ml Sdv) 30 mg IVPUSH Q6H [facility] Stop: 09/05/20 09:16 Last Admin: 09/05/20 03:12 Dose: 30 mg Documented by: Methylergonovine Maleate (Methylergonovine 0.2 Mg/1 Ml Amp) 0.2 mg IM ONETIME PRN PRN Reason: Excessive Vaginal Bleeding Misoprostol (Misoprostol 200 Mcg Tab) 1,000 mcg RECTAL ONETIME PRN PRN Reason: excessive bleeding Nalbuphine HCl (Nalbuphine 10 Mg/1 Ml Vial) 5 mg IVPUSH ASDIRECTED PRN PRN Reason: Itching Ondansetron HCl (Ondansetron 4 Mg/2 Ml Sdv) 4 mg IVPUSH Q6H PRN PRN Reason: Nausea Ondansetron HCl (Ondansetron 4 Mg/2 Ml Sdv) 4 mg IVPUSH Q4H PRN PRN Reason: Nausea/Vomiting Oxycodone/Acetaminophen (Acetaminophen/Oxycodone 325-5 Mg Tab) 2 tab PO Q6H PRN PRN Reason: Pain (moderate 4-6) Last Admin: 09/04/20 12:19 Dose: 2 tab Documented by: Oxycodone/Acetaminophen (Acetaminophen/Oxycodone 325-5 Mg Tab) 1 tab PO Q4H PRN PRN Reason: Pain (moderate 4-6) Oxycodone/Acetaminophen (Acetaminophen/Oxycodone 325-5 Mg Tab) 2 tab PO Q4H PRN PRN Reason: Pain (moderate 4-6) Oxytocin (Oxytocin 10 Units/1 Ml Sdv) 10 unit IM ASDIRECTED PRN PRN Reason: Excessive Vaginal Bleeding Sodium Chloride (Sodium Chloride 0.9% 10 Ml Syringe) 10 ml FLUSH ASDIRECTED PRN PRN Reason: Keep Vein Open Sodium Chloride (Sodium Chloride 0.9% 2.5 Ml Syringe) 2.5 ml FLUSH ASDIRECTED PRN PRN Reason: Keep Vein Open Sodium Chloride (Sodium Chloride 0.9% 10 Ml Sdv) 10 ml IV ASDIRECTED PRN PRN Reason: IV Use Discontinued Medications Cefazolin Sodium (Cefazolin 1 Gm Vial) Confirm Administered Dose 2 gm .ROUTE .STK-MED ONE Stop: 09/04/20 07:42 Citric Acid/Sodium Citrate (Citric Acid/Sodium Citrate Solution 30 Ml Cup) 30 ml PO ONETIME ONE Stop: 09/04/20 05:34 Diphenhydramine HCl (Diphenhydramine 50 Mg/Ml Sdv) 25 mg IVPUSH Q4H PRN PRN Reason: Itching Stop: 09/05/20 08:36 Last Admin: 09/04/20 10:32 Dose: 25 mg Documented by: Glycopyrrolate (Glycopyrrolate 0.2 Mg/Ml Sdv) Confirm Administered Dose 0.2 mg .ROUTE .STK-MED ONE Stop: 09/04/20 07:16 Cefazolin Sodium/Dextrose 2 gm (/ Premix) 50 mls @ 100 mls/hr IV ONETIME ONE Stop: 09/04/20 06:02 Sodium Chloride (Normal Saline) Confirm Administered Dose 20 mls @ as directed .ROUTE .STK-MED ONE Stop: 09/04/20 07:42 Ketorolac Tromethamine (Ketorolac 30 Mg/Ml Sdv) Confirm Administered Dose 30 mg .ROUTE .STK-MED ONE Stop: 09/04/20 07:16 Midazolam HCl (Midazolam 1 Mg/Ml 2 Ml Sdv) Confirm Administered Dose 2 mg .ROUTE .STK-MED ONE Stop: 09/04/20 08:33 Morphine Sulfate (Morphine Pf 10 Mg/10 Ml Sdv) Confirm Administered Dose 10 mg .ROUTE .STK-MED ONE Stop: 09/04/20 07:11 Naloxone HCl (Naloxone 0.4 Mg/Ml Syringe) 0.1 mg IVPUSH ONETIME PRN PRN Reason: Respiratory Depression Stop: 09/05/20 08:36 Ondansetron HCl (Ondansetron 4 Mg/2 Ml Sdv) Confirm Administered Dose 4 mg .ROUTE .STK-MED ONE Stop: 09/04/20 07:16 Oxytocin (Oxytocin 10 Units/1 Ml Sdv) Confirm Administered Dose 20 unit .ROUTE .STK-MED ONE Stop: 09/04/20 07:16 Phenylephrine HCl (Phenylephrine 1% 10 Mg/Ml Sdv) Confirm Administered Dose 10 mg .ROUTE .STK-MED ONE Stop: 09/04/20 07:16 - Interaction Disposition, : to Nursery Feeding: Breastfed Infant; Nursed Well Support Person: Significant Other - Recovery Exam Fundal Tone: Firm Fundal Level: 1 Fingerbreadths Below Umbilicus Fundal Placement: Midline Lochia Amount: Scant Lochia Color: Rubra/Red Episiotomy/Laceration: None Bladder Status: Voiding Urinary Elimination: Voided - Exam General: Alert Lungs: Normal Respiratory Effort Cardiovascular: Regular Rate GI/Abdominal Exam: Soft, Non-Tender Extremities: Normal Range of Motion, Non-Tender, Pedal Edema (1+) Skin: Warm, Dry, Intact Wound/Incisions: Dressing Dry and Intact Neurological: No New Focal Deficit Psy/Mental Status: Normal Mood - Problem List Review Problem List Initiated/Reviewed/Updated: Yes - My Orders Last 24 Hours: My Active Orders 09/04/20 09:11 Patient Status [ADT] Routine Ambulate [RC] PER UNIT ROUTINE Antiembolic Devices [RC] PER UNIT ROUTINE Communication Order [RC] PER UNIT ROUTINE Communication Order [RC] PER UNIT ROUTINE Communication Order [RC] Per Unit Routine May Shower [RC] ASDIRECTED RT Incentive Spirometry [RC] Q2HWA Acetaminophen/oxyCODONE [Percocet 325-5 MG] 1 tab PO Q4H PRN Acetaminophen/oxyCODONE [Percocet 325-5 MG] 2 tab PO Q4H PRN Ibuprofen [Motrin] 800 mg PO Q8H PRN Lanolin [Lansinoh HPA] See Dose Instructions TOP ASDIRECTED PRN Methylergonovine [Methergine] 0.2 mg IM ONETIME PRN Ondansetron [Zofran] 4 mg IVPUSH Q4H PRN Oxytocin [Pitocin] 10 unit IM ASDIRECTED PRN Tranexamic Acid [Cyklokapron] 1,000 mg Sodium Chloride 0.9% [Normal Saline] 100 ml IV ONETIME bisacodyL [Dulcolax] 10 mg RECTAL ONETIME PRN diphenhydrAMINE [Benadryl] 25 mg IVPUSH Q6H PRN miSOPROStoL [Cytotec] 1,000 mcg RECTAL ONETIME PRN Assess Lochia [WOMSER] Per Unit Routine Assess Uterine Involution [WOMSER] Per Unit Routine Breast Pump [WOMSER] Per Unit Routine Peripheral IV Discontinue [OM.PC] Routine Sequential Compression Device [OM.PC] Per Unit Routine 09/04/20 09:15 Ketorolac [Toradol] 30 mg IVPUSH Q6H Lactated Ringers [Ringers, Lactated] 1,000 ml IV ASDIRECTED Oxytocin/Lactated Ringers [Pitocin in LR 30 Units/500 ML] 30 unit in 500 ml IV TITRATE 09/04/20 09:30 Notify Provider Intake and Out [RC] ASDIRECTED Notify Provider Vital Signs [RC] ASDIRECTED 09/04/20 Lunch Regular Diet [DIET] 09/04/20 17:00 Ferrous Sulfate 325 mg PO BIDMEALS 09/04/20 21:00 Docusate Sodium [Colace] 100 mg PO BID - Assessment Assessment:: 24 year old female POD #1 s/p RLTCS - Plan Plan:: Routine cares * Rh positive/rubella immune/GBS negative * PO pain medication PRN * Regular diet as tolerated * Encourage ambulation and fluid intake * , nursing assistance PRN Anemia * Hgb 9.7 > 8.3 * Asymptomatic * PO iron ordered BID with meals * Will continue to monitor bleeding closely Dispo: stable. Anticipate discharge POD 2-3 pending maternal/ status. Continue cares today.
[2020-09-05] MEDS: Docusate Sodium 100 MG Cap PO SCH ×2 (09:12→20:23)
[2020-09-05] MEDS: Ferrous Sulfate 325 MG Tab PO SCH ×2 (09:12→16:41)
[2020-09-05] MEDS: Ibuprofen 800 MG Tab PO PRN (16:41)
[2020-09-05] MEDS: Acetaminophen/oxyCODONE 325-5 MG Tab PO PRN ×2 (18:05→22:33)
[2020-09-05] MEDS: Lanolin 100% Cream 7 GM Tube TOP PRN (20:23)
[2020-09-06] MEDS: Ibuprofen 800 MG Tab PO PRN ×2 (02:10→11:19)
--- NOTE | 2020-09-06 06:56 | PCM48HPAN ---
Post Anesthesia Note - EVALUATION WITHIN 48HRS OF ANESTHETIC Vital Signs in Normal Range: Yes Patient Participated in Evaluation: Yes Respiratory Function Stable: Yes Airway Patent: Yes Cardiovascular Function Stable: Yes Hydration Status Stable: Yes Pain Control Satisfactory: Yes Nausea and Vomiting Control Satisfactory: Yes Mental Status Recovered: Yes Vital Signs: Last Vital Signs Temp 36.3 C 09/06/20 04:00 Pulse 71 09/06/20 04:00 Resp 15 09/06/20 04:00 BP 110/69 09/06/20 04:00 Pulse Ox 97 09/06/20 04:00 - COMMENTS/OBSERVATIONS Free Text/Narrative:: No anesthesia problems
[2020-09-06] MEDS: Acetaminophen/oxyCODONE 325-5 MG Tab PO PRN ×2 (08:09→12:44)
[2020-09-06] MEDS: Docusate Sodium 100 MG Cap PO SCH (08:09)
[2020-09-06] MEDS: Ferrous Sulfate 325 MG Tab PO SCH (08:09)
--- NOTE | 2020-09-06 08:30 | PCM.PNPP ---
- General Info Date of Service: 09/06/20 Admission Dx/Problem (Free Text): Scheduled repeat lower transverse section Subjective Update: Resting in bed during rounds. Pain well controlled when taking medications, has uterine cramping with . Lochia decreasing. Ambulating and voiding without difficulty. Tolerating regular diet. and pumping going well, however, her right nipple has been painful. Has been using Lanolin to the nipple. - General Info Date of Service: 09/06/20 - Patient Data Vital Signs - Most Recent: Last Vital Signs Temp 97.4 F 09/06/20 04:00 Pulse 71 09/06/20 04:00 Resp 15 09/06/20 04:00 BP 110/69 09/06/20 04:00 Pulse Ox 97 09/06/20 04:00 Weight - Most Recent: 160 lb 0.008 oz Med Orders - Current: Current Medications Bisacodyl (Bisacodyl 10 Mg Supp) 10 mg RECTAL ONETIME PRN PRN Reason: Constipation Diphenhydramine HCl (Diphenhydramine 50 Mg/Ml Sdv) 25 mg IVPUSH Q6H PRN PRN Reason: Itching or Nausea Docusate Sodium (Docusate Sodium 100 Mg Cap) 100 mg PO BID [facility] Last Admin: 09/06/20 08:09 Dose: 100 mg Documented by: Emollient Ointment (Lanolin 100% Cream 7 Gm Tube) 0 gm TOP ASDIRECTED PRN PRN Reason: Sore Nipples Last Admin: 09/05/20 20:23 Dose: 7 gm Documented by: Fentanyl (Fentanyl 100 Mcg/2 Ml Sdv) 50 mcg IVPUSH Q1H PRN PRN Reason: Pain (severe 7-10) Ferrous Sulfate (Ferrous Sulfate 325 Mg Tab) 325 mg PO BIDMEALS [facility] Last Admin: 09/06/20 08:09 Dose: 325 mg Documented by: Oxytocin/Sodium Chloride (Oxytocin 30 Unit/500 Ml-Ns) 30 unit in 500 mls @ 250 mls/hr IV TITRATE [facility] Lactated Ringer's (Ringers, Lactated) 1,000 mls @ 500 mls/hr IV BOLUS [facility] Last Admin: 09/04/20 07:12 Dose: 500 mls/hr Documented by: Lactated Ringer's (Ringers, Lactated) 1,000 mls @ 125 mls/hr IV ASDIRECTED [facility] Last Admin: 09/04/20 11:00 Dose: 125 mls/hr Documented by: Oxytocin/Lactated Ringer's (Pitocin In Lr 30 Units/500 Ml) 30 unit in 500 mls @ 999 mls/hr IV TITRATE ZITA; Protocol Tranexamic Acid 1,000 mg/ (Sodium Chloride) 110 mls @ 660 mls/hr IV ONETIME PRN PRN Reason: Bleeding Ibuprofen (Ibuprofen 800 Mg Tab) 800 mg PO Q8H PRN PRN Reason: mild pain or fever Last Admin: 09/06/20 02:10 Dose: 800 mg Documented by: Methylergonovine Maleate (Methylergonovine 0.2 Mg/1 Ml Amp) 0.2 mg IM ONETIME PRN PRN Reason: Excessive Vaginal Bleeding Misoprostol (Misoprostol 200 Mcg Tab) 1,000 mcg RECTAL ONETIME PRN PRN Reason: excessive bleeding Nalbuphine HCl (Nalbuphine 10 Mg/1 Ml Vial) 5 mg IVPUSH ASDIRECTED PRN PRN Reason: Itching Ondansetron HCl (Ondansetron 4 Mg/2 Ml Sdv) 4 mg IVPUSH Q6H PRN PRN Reason: Nausea Ondansetron HCl (Ondansetron 4 Mg/2 Ml Sdv) 4 mg IVPUSH Q4H PRN PRN Reason: Nausea/Vomiting Oxycodone/Acetaminophen (Acetaminophen/Oxycodone 325-5 Mg Tab) 2 tab PO Q6H PRN PRN Reason: Pain (moderate 4-6) Last Admin: 09/04/20 12:19 Dose: 2 tab Documented by: Oxycodone/Acetaminophen (Acetaminophen/Oxycodone 325-5 Mg Tab) 1 tab PO Q4H PRN PRN Reason: Pain (moderate 4-6) Last Admin: 09/05/20 12:15 Dose: 1 tab Documented by: Oxycodone/Acetaminophen (Acetaminophen/Oxycodone 325-5 Mg Tab) 2 tab PO Q4H PRN PRN Reason: Pain (moderate 4-6) Last Admin: 09/06/20 08:09 Dose: 2 tab Documented by: Oxytocin (Oxytocin 10 Units/1 Ml Sdv) 10 unit IM ASDIRECTED PRN PRN Reason: Excessive Vaginal Bleeding Sodium Chloride (Sodium Chloride 0.9% 10 Ml Syringe) 10 ml FLUSH ASDIRECTED PRN PRN Reason: Keep Vein Open Sodium Chloride (Sodium Chloride 0.9% 2.5 Ml Syringe) 2.5 ml FLUSH ASDIRECTED PRN PRN Reason: Keep Vein Open Sodium Chloride (Sodium Chloride 0.9% 10 Ml Sdv) 10 ml IV ASDIRECTED PRN PRN Reason: IV Use Discontinued Medications Cefazolin Sodium (Cefazolin 1 Gm Vial) Confirm Administered Dose 2 gm .ROUTE .STK-MED ONE Stop: 09/04/20 07:42 Citric Acid/Sodium Citrate (Citric Acid/Sodium Citrate Solution 30 Ml Cup) 30 ml PO ONETIME ONE Stop: 09/04/20 05:34 Diphenhydramine HCl (Diphenhydramine 50 Mg/Ml Sdv) 25 mg IVPUSH Q4H PRN PRN Reason: Itching Stop: 09/05/20 08:36 Last Admin: 09/04/20 10:32 Dose: 25 mg Documented by: Glycopyrrolate (Glycopyrrolate 0.2 Mg/Ml Sdv) Confirm Administered Dose 0.2 mg .ROUTE .STK-MED ONE Stop: 09/04/20 07:16 Cefazolin Sodium/Dextrose 2 gm (/ Premix) 50 mls @ 100 mls/hr IV ONETIME ONE Stop: 09/04/20 06:02 Sodium Chloride (Normal Saline) Confirm Administered Dose 20 mls @ as directed .ROUTE .STK-MED ONE Stop: 09/04/20 07:42 Ketorolac Tromethamine (Ketorolac 30 Mg/Ml Sdv) Confirm Administered Dose 30 mg .ROUTE .STK-MED ONE Stop: 09/04/20 07:16 Ketorolac Tromethamine (Ketorolac 30 Mg/Ml Sdv) 30 mg IVPUSH Q6H ZITA Stop: 09/05/20 09:16 Last Admin: 09/05/20 09:12 Dose: 30 mg Documented by: Midazolam HCl (Midazolam 1 Mg/Ml 2 Ml Sdv) Confirm Administered Dose 2 mg .ROUTE .STK-MED ONE Stop: 09/04/20 08:33 Morphine Sulfate (Morphine Pf 10 Mg/10 Ml Sdv) Confirm Administered Dose 10 mg .ROUTE .STK-MED ONE Stop: 09/04/20 07:11 Naloxone HCl (Naloxone 0.4 Mg/Ml Syringe) 0.1 mg IVPUSH ONETIME PRN PRN Reason: Respiratory Depression Stop: 09/05/20 08:36 Ondansetron HCl (Ondansetron 4 Mg/2 Ml Sdv) Confirm Administered Dose 4 mg .ROUTE .STK-MED ONE Stop: 09/04/20 07:16 Oxytocin (Oxytocin 10 Units/1 Ml Sdv) Confirm Administered Dose 20 unit .ROUTE .STK-MED ONE Stop: 09/04/20 07:16 Phenylephrine HCl (Phenylephrine 1% 10 Mg/Ml Sdv) Confirm Administered Dose 10 mg .ROUTE .STK-MED ONE Stop: 09/04/20 07:16 - Interaction Infant Disposition, : in Room with Family Infant Feeding: Breastfed Infant; Nursed Well Support Person: Significant Other - Recovery Exam Fundal Tone: Firm Fundal Level: 1 Fingerbreadths Below Umbilicus Fundal Placement: Midline Lochia Amount: Scant Lochia Color: Rubra/Red Episiotomy/Laceration: None Bladder Status: Voiding Urinary Elimination: Voided - Exam General: Alert Lungs: Normal Respiratory Effort Cardiovascular: Regular Rate GI/Abdominal Exam: Soft, Tender (appropriate s/p CS) Extremities: Normal Range of Motion, Non-Tender, Pedal Edema (1+) Skin: Warm, Dry, Intact Wound/Incisions: Healing Well Neurological: No New Focal Deficit Psy/Mental Status: Normal Mood - Problem List Review Problem List Initiated/Reviewed/Updated: Yes - Assessment Assessment:: 24 year old female POD #2 s/p RLTCS - Plan Plan:: Routine cares * Rh positive/rubella immune/GBS negative * PO pain medication PRN * Regular diet as tolerated * Encourage ambulation and fluid intake * , nursing assistance PRN * Contraception options reviewed, patient desires to proceed with progesterone- only OCP. Instructions for use reviewed. Anemia * Hgb 9.7 > 8.3 * Asymptomatic * PO iron ordered BID with meals * Will continue to monitor bleeding closely Dispo: stable. Anticipate discharge today pending maternal/ status. Reviewed discharge instructions including to notify clinic with temperature >100.4, intractable nausea/vomiting, severe pain not controlled by PO medications or heavy vaginal bleeding. Patient to return to clinic in 2 weeks for incision check and 4 weeks for appointment.
[2020-09-06] MEDS ORDERED: Simethicone 80 MG Tab.Chew PO PRN (08:35)
[2020-09-06] MEDS ORDERED: Ondansetron 4 MG Tab.DIS PO PRN (09:05)
[2020-09-06] MEDS: Lanolin 100% Cream 7 GM Tube TOP PRN (12:46)
== END 2020-09-06 14:15 | disposition home or self-care (01) | DRG 786 ==
LOC: MW.OB 05:26
PROVIDERS: ADMIT Obstetrics & Gynecology; ATTEND Obstetrics & Gynecology
PROC: 10D00Z1 Extraction of Products of Conception, Low, Open Approach (ICD-10-PCS; principal; 2020-09-04)
DX: O34.211 Maternal care for low transverse scar from previous cesarean delivery (principal); U07.1 COVID-19; O98.52 Other viral diseases complicating childbirth; Z3A.39 39 weeks gestation of pregnancy; Z37.0 Single live birth; O99.02 Anemia complicating childbirth; D64.9 Anemia, unspecified
CPT/HCPCS: 01961; 36415; 59025; 85014; 85018; 85027; 86592; 86850; 86900; 86901; A9270-GY; J0690; J1200; J1885; J2250; J2270; J2370; J2405; J2590; J3490; J7120

== ENCOUNTER 2020-12-28 10:18 | Emergency (ER) | payer MEDICAID, OTHER ==
--- NOTE | 2020-12-28 11:09 | EDM.PDOC ---
ED HPI GENERAL MEDICAL PROBLEM - General Chief Complaint: Fever Stated Complaint: FEVER ACHES Time Seen by Provider: 12/28/20 10:28 Source of Information: Reports: Patient History Limitations: Reports: No Limitations - History of Present Illness INITIAL COMMENTS - FREE TEXT/NARRATIVE: HISTORY AND PHYSICAL: History of present illness: Patient is a 25-year-old female who presents to the emergency room with her 2 kids stating they have all had fever, sore throat and body aches. She states her son has had symptoms for a few days, she states she noted her symptoms starting early this morning and had a fever of 103 Fahrenheit. Patient denies any headache, change in vision, syncope or near syncope. Denies any chest pain, back pain, shortness of breath or cough. Denies any abdominal pain, nausea, vomiting, diarrhea, constipation or dysuria. She has no concern for . Patient has been eating and drinking appropriately. Review of systems: As per history of present illness and below otherwise all systems reviewed and negative. Past medical history: As per history of present illness and as reviewed below otherwise noncontributory. Surgical history: As per history of present illness and as reviewed below otherwise noncontributory. Social history: See social history for further information Family history: As per history of present illness and as reviewed below otherwise noncontributory. Physical exam: General: Well developed and well nourished. Alert and orientated x 3. Nontoxic in appearance and in no acute distress. Vital signs are stable and have been reviewed by me. Nursing notes were reviewed. HEENT: Atraumatic, normocephalic, pupils equal and reactive bilaterally, negative for conjunctival pallor or scleral icterus, mucous membranes moist, TMs normal bilaterally, throat erythematous with exudate, neck supple, nontender, trachea midline. No drooling or trismus noted. No meningeal signs. No hot potato voice noted. Lungs: Clear to auscultation bilaterally. No wheezes, rales, or rhonchi. Chest nontender. Normal work of breathing, no accessory muscles used. Heart: S1S2, regular rate and rhythm without overt murmur, gallops, or rubs. No JVD. No peripheral edema Abdomen: Soft, nondistended, nontender. Normoactive bowel sounds. Negative for masses or costovertebral tenderness. Skin: Intact, warm, dry. No lesions or rashes noted. Hematologic: No petechiae or purpra. Mucosa appropriate color and normal nail bed color and refill. Extremities: Atraumatic, moves all extremities per self without difficulty or deficits, negative for cords or calf pain. Neurovascular unremarkable. Neuro: Awake, alert, oriented. Cranial nerves II through XII unremarkable. Cerebellum unremarkable. Motor and sensory unremarkable throughout. Exam nonf ocal. Psychiatric: Mood and affect are appropriate. Normal thought process. Answering questions appropriately. Notes: *This patient was seen and evaluated during the 2019 SARS-CoV-2 novel coronaviru s pandemic period. Community viral transmission is ongoing at time of this encounter and the emergency department is operating under pandemic response procedures. I have tested the patient for COVID-19/influenza. The son will be tested for strep throat. I do have concern that the all have strep throat. Strep screening is positive on the younger child, will treat the family. I have talked with the patient about today's findings, in addition to providing specific details for plan of care. Reassessment at the time of disposition demonstrates that the patient is in no acute distress. The patient is stable for discharge, counseling was provided and we discussed in great detail signs and symptoms that would prompt them to return to the Emergency Department. Medication, follow up and supportive care measures were reviewed and discussed. Voices understanding and is agreeable to plan of care. Denies any further questions or concerns at this time. Diagnostics: COVID-19, influenza Therapeutics: None Prescription: Pen-Vee K Impression: Strep pharyngitis Plan: 1. Take your medication as directed. Good handwashing and contact precautions as we discussed. 2. Warm Salt water gargles (rinse and spit) 3-4 x daily. Please get a new tooth brush after completion of your medication 3. Tylenol and or ibuprofen as needed for pain management. 4. Follow-up with your primary care provider in the next 1-2 days. Return to the ED as needed and as discussed. Definitive disposition and diagnosis as appropriate pending reevaluation and review of above. - Related Data Allergies Allergy/AdvReac Type Severity Reaction Status Date / Time No Known Allergies Allergy Verified 12/28/20 10:56 Home Meds: Home Meds Penicillin V Potassium [Veetids] 500 mg PO BID 10 Days #20 tab 12/28/20 [Rx] SUMAtriptan [Sumatriptan] 5 mg PO ASDIRECTED 12/28/20 [History] Past Medical History - Past Health History Medical/Surgical History: Denies Medical/Surgical History HEENT History: Reports: None Cardiovascular History: Reports: None Other Cardiovascular History: hx tachycardia 2 years ago Respiratory History: Reports: None Other Respiratory History: Just off quarantine for positive COVID-19 exposure. 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 Musculoskeletal History: Reports: None Other Musculoskeletal History: presently has torn ACL-left knee Neurological History: Reports: None Other Neuro History: "Major Concussion" Psychiatric History: Reports: None Endocrine/Metabolic History: Reports: None Hematologic History: Reports: None Immunologic History: Reports: None Oncologic (Cancer) History: Reports: None Dermatologic History: Reports: None - Infectious Disease History Infectious Disease History: Reports: Chicken Pox - Past Surgical History Head Surgeries/Procedures: Reports: None HEENT Surgical History: Reports: Oral Surgery Cardiovascular Surgical History: Reports: None Respiratory Surgical History: Reports: None GI Surgical History: Reports: None Other GI Surgeries/Procedures: umbilical hernia repair with mesh Female Surgical History: Reports: Section Endocrine Surgical History: Reports: None Neurological Surgical History: Reports: None Musculoskeletal Surgical History: Reports: None Oncologic Surgical History: Reports: None Dermatological Surgical History: Reports: None Social & Family History - Family History Family Medical History: No Pertinent Family History HEENT: Reports: Hearing Impairment Cardiac: Reports: None Respiratory: Reports: None GI: Reports: None : Reports: None OBGYN: Reports: Musculoskeletal: Reports: None Neurological: Reports: None Psychiatric: Reports: ADHD, Other (See Below) Other Psychiatric Family History: high functioning ashberger's Endocrine/Metabolic: Reports: None Hematologic: Reports: None Immunologic: Reports: None Dermatologic: Reports: None Oncologic: Reports: None - Tobacco Use Tobacco Use Status *Q: Never Tobacco User - Caffeine Use Caffeine Use: Reports: None - Recreational Drug Use Recreational Drug Use: No ED ROS ENT - Review of Systems Review Of Systems: Comprehensive ROS is negative, except as noted in HPI. ED EXAM, ENT - Physical Exam Exam: See Below (See dictation) Course - Vital Signs Last Recorded V/S: Last Vital Signs Temp 97.7 F 12/28/20 10:57 Pulse 100 12/28/20 10:57 Resp 16 12/28/20 10:57 BP 127/60 12/28/20 10:57 Pulse Ox 98 12/28/20 10:57 - Orders/Labs/Meds Labs: Laboratory Tests 12/28/20 Range/Units 10:53 Influenza Type A RNA NEGATIVE (NEGATIVE) Influenza Type B RNA NEGATIVE (NEGATIVE) SARS-CoV-2 RNA (LIZABETH) NEGATIVE (NEGATIVE) Departure - Departure Time of Disposition: 11:55 Disposition: Home, Self-Care 01 Clinical Impression: Strep pharyngitis - Discharge Information Prescriptions: Penicillin V Potassium [Veetids] 500 mg PO BID 10 Days #20 tab Instructions: Strep Throat, Adult, [id number] Referrals: Layo Bronson MD [Primary Care Provider] - Forms: ED Department Discharge Additional Instructions: The following information is given to patients seen in the emergency department who are being discharged to home. This information is to outline your options for follow-up care. We provide all patients seen in our emergency department with a follow-up referral. The need for follow-up, as well as the timing and circumstances, are variable depending upon the specifics of your emergency department visit. If you don't have a primary care physician on staff, we will provide you with a referral. We always advise you to contact your personal physician following an emergency department visit to inform them of the circumstance of the visit and for follow-up with them and/or the need for any referrals to a consulting specialist. The emergency department will also refer you to a specialist when appropriate. This referral assures that you have the opportunity for follow-up care with a specialist. All of these measure are taken in an effort to provide you with optimal care, which includes your follow-up. Under all circumstances we always encourage you to contact your private physician who remains a resource for coordinating your care. When calling for follow-up care, please make the office aware that this follow-up is from your recent emergency room visit. If for any reason you are refused follow-up, please contact the [facility] Emergency Department at and asked to speak to the emergency department charge nurse. [facility] [address] [place] [id number] [facility] [address] [place] [id number] Thank you for choosing the [facility] emergency department in [place] for your medical needs today. It was a pleasure caring for you. Today you were seen in the emergency department for strep throat. 1. Take your medication as directed. Good handwashing and contact precautions as we discussed. 2. Warm Salt water gargles (rinse and spit) 3-4 x daily. Please get a new tooth brush after completion of your medication 3. Tylenol and or ibuprofen as needed for pain management. 4. Follow-up with your primary care provider in the next 1-2 days. Return to the ED as needed and as discussed. Sepsis Event Note (ED) - Evaluation Sepsis Screening Result: No Definite Risk - Focused Exam Vital Signs: Vital Signs Temp Pulse Resp BP Pulse Ox 12/28/20 10:57 97.7 F 100 16 127/60 98
[2020-12-28 11:40] LABS: CORONAVIRUS COVID-19 NAA NEGATIVE (NEGATIVE); INFLUENZA A NAA NEGATIVE (NEGATIVE); INFLUENZA B NAA NEGATIVE (NEGATIVE)
== END 2020-12-28 12:10 | disposition home or self-care (01) ==
LOC: MW.ED 10:18
DX: J02.0 Streptococcal pharyngitis (principal); Z20.822 Contact with and (suspected) exposure to COVID-19
CPT/HCPCS: 0240U; 99283

== ENCOUNTER 2021-07-03 16:53 | Emergency (ER) | payer MEDICAID ==
[2021-07-03] MEDS ORDERED: Sodium Chloride 0.9% 1,000 ML IV ONE (18:22)
[2021-07-03] MEDS ORDERED: Ondansetron 4 MG/2 ML SDV IVPUSH ONE (18:22)
[2021-07-03 19:05] LABS: BLOOD UREA NITROGEN,BUN 6 mg/dL (7.0-18.0); CARBON DIOXIDE,CO2 22.9 mmol/L (21.0-32.0); CHLORIDE,CL 99 mmol/L (98-107); GLUCOSE RANDOM 79 mg/dL (74-106); POTASSIUM,K 3.7 mmol/L (3.5-5.1); SODIUM,NA 133 mmol/L (136-145)
== END 2021-07-03 20:16 | disposition home or self-care (01) ==
LOC: MW.ED 16:53
DX: O98.512 Other viral diseases complicating pregnancy, second trimester (principal); U07.1 COVID-19; Z3A.24 24 weeks gestation of pregnancy
CPT/HCPCS: 36415; 80053; 81003; 85025; 87635; 87804; 96374; 99284; J2405; J7030; U0002

== ENCOUNTER 2021-09-04 20:23 | Emergency (ER) | payer MEDICAID | END 2021-09-04 23:08 | disposition home or self-care (01) | LOC: MW.ED 20:23 | DX: O22.43 Hemorrhoids in pregnancy, third trimester (principal); Z3A.34 34 weeks gestation of pregnancy | CPT/HCPCS: 99282 ==

== ENCOUNTER 2021-09-05 16:20 | Observation (INO) | payer MEDICAID ==
[2021-09-05] MEDS ORDERED: Sodium Chloride 0.9% 10 ML Syringe FLUSH PRN ×2 (17:18→17:31)
[2021-09-05] MEDS ORDERED: Ondansetron 4 MG/2 ML SDV IVPUSH ONE (17:18)
[2021-09-05] MEDS ORDERED: Meclizine 25 MG Tab PO ONE (17:18)
[2021-09-05] MEDS ORDERED: Sodium Chloride 0.9% 2.5 ML Syringe FLUSH PRN ×2 (17:18→17:31)
[2021-09-05] MEDS ORDERED: Sodium Chloride 0.9% 20 ML SDV IV PRN (17:31)
[2021-09-05 18:19] LABS: BLOOD UREA NITROGEN,BUN 8 mg/dL (7.0-18.0); CARBON DIOXIDE,CO2 20.9 mmol/L (21.0-32.0); CHLORIDE,CL 101 mmol/L (98-107); GLUCOSE RANDOM 153 mg/dL (74-106); POTASSIUM,K 3.7 mmol/L (3.5-5.1); SODIUM,NA 134 mmol/L (136-145)
[2021-09-05] MEDS ORDERED: HYDROmorphone 1 MG/ML Syringe IVPUSH PRN (20:05)
[2021-09-05] MEDS: Docusate Sodium 100 MG Cap PO SCH (22:43)
[2021-09-05] MEDS: Acetaminophen/HYDROcodone 325-5 MG Tab PO PRN (22:45)
[2021-09-06] MEDS: Acetaminophen/HYDROcodone 325-5 MG Tab PO PRN (03:52)
[2021-09-06] MEDS: Sodium Chloride 0.9% 1,000 ML IV SCH ×2 (06:00→20:32)
[2021-09-06] MEDS: Ondansetron 4 MG/2 ML SDV IVPUSH PRN ×2 (06:25→15:06)
[2021-09-06] MEDS ORDERED: Ondansetron 4 MG/2 ML SDV ONE (07:13)
[2021-09-06] MEDS ORDERED: Bupivacaine 0.5% 30 ML SDV ONE (07:13)
[2021-09-06] MEDS ORDERED: Propofol 200 MG/20 ML SDV ONE (07:14)
[2021-09-06] MEDS ORDERED: fentaNYL 100 MCG/2 ML SDV ONE (07:14)
[2021-09-06] MEDS ORDERED: Naloxone 0.4 MG/ML SDV IVPUSH PRN (07:32)
[2021-09-06] MEDS ORDERED: Ondansetron 4 MG/2 ML SDV IVPUSH PRN (07:32)
[2021-09-06] MEDS ORDERED: Metoclopramide 10 MG/2 ML SDV IVPUSH PRN (07:32)
[2021-09-06] MEDS ORDERED: Albuterol 0.083% 2.5 MG/3 ML Neb Soln NEB PRN (07:32)
[2021-09-06] MEDS ORDERED: fentaNYL 100 MCG/2 ML SDV IVPUSH PRN (07:32)
[2021-09-06] MEDS ORDERED: cefOXitin 1 GM Vial ONE (07:39)
[2021-09-06] MEDS ORDERED: Water For Injection, Sterile 20 ML ONE (07:39)
[2021-09-06] MEDS ORDERED: Lidocaine 2% Jelly 30 ML Tube ONE (07:39)
[2021-09-06] MEDS: HYDROmorphone 1 MG/ML Syringe IVPUSH PRN ×2 (08:32→08:45)
[2021-09-06] MEDS: Cyclobenzaprine 5 MG Tab PO PRN ×2 (08:59→19:39)
[2021-09-06] MEDS ORDERED: Dexmedetomidine 200 MCG/2 ML SDV ONE (09:30)
[2021-09-06] MEDS ORDERED: Bupivacaine 0.25% 10 ML SDV ONE (09:34)
[2021-09-06] MEDS: Docusate Sodium 100 MG Cap PO SCH ×3 (11:16→23:09)
[2021-09-06] MEDS ORDERED: Lactated Ringers 1,000 ML IV SCH (11:45)
[2021-09-06] MEDS: Acetaminophen 1,000 MG in Premix Bag 1 BAG IV SCH ×2 (12:57→18:40)
[2021-09-06] MEDS: oxyCODONE 5 MG Tab PO PRN ×3 (15:05→23:08)
[2021-09-06] MEDS: HYDROmorphone 2 MG/ML Syringe IVPUSH PRN (23:14)
[2021-09-07] MEDS: Acetaminophen 1,000 MG in Premix Bag 1 BAG IV SCH ×3 (00:49→13:53)
[2021-09-07] MEDS: HYDROmorphone 2 MG/ML Syringe IVPUSH PRN ×4 (01:22→21:19)
[2021-09-07] MEDS: oxyCODONE 5 MG Tab PO PRN ×4 (03:12→18:19)
[2021-09-07] MEDS: Cyclobenzaprine 5 MG Tab PO PRN (03:13)
[2021-09-07] MEDS: Sodium Chloride 0.9% 1,000 ML IV SCH (07:23)
[2021-09-07] MEDS: Docusate Sodium 100 MG Cap PO SCH ×2 (08:06→21:19)
[2021-09-07] MEDS ORDERED: Cyclobenzaprine 5 MG Tab PO ONE (09:00)
[2021-09-07] MEDS: Acetaminophen/Butalbital/Caffeine 325-50-40 MG Tab PO PRN ×2 (11:39→23:46)
[2021-09-07] MEDS ORDERED: Cyclobenzaprine 5 MG Tab PO PRN ×2 (13:30→17:00)
[2021-09-07] MEDS: Cyclobenzaprine 10 MG Tab PO PRN ×2 (13:51→19:57)
[2021-09-07] MEDS: Ondansetron 4 MG/2 ML SDV IVPUSH PRN (22:15)
[2021-09-08] MEDS: oxyCODONE 5 MG Tab PO PRN ×3 (03:36→12:44)
[2021-09-08] MEDS: Cyclobenzaprine 10 MG Tab PO PRN ×2 (04:55→12:44)
[2021-09-08] MEDS: HYDROmorphone 2 MG/ML Syringe IVPUSH PRN ×4 (06:00→14:09)
[2021-09-08] MEDS: Ondansetron 4 MG/2 ML SDV IVPUSH PRN ×2 (08:12→14:07)
[2021-09-08] MEDS: Docusate Sodium 100 MG Cap PO SCH (08:17)
[2021-09-08] MEDS: Acetaminophen/Butalbital/Caffeine 325-50-40 MG Tab PO PRN ×2 (08:17→14:06)
[2021-09-08] MEDS ORDERED: Polyethylene Glycol 3350 Powder 17 GM Packet PO ONE (09:46)
[2021-09-08] MEDS ORDERED: Witch Hazel Medicated Pads 40/Jar TOP PRN (09:47)
[2021-09-08] MEDS ORDERED: Witch Hazel Medicated Pads 40/Jar TOP ONE (09:53)
[2021-09-08] MEDS ORDERED: Ondansetron 4 MG Tab PO ONE (15:41)
== END 2021-09-08 16:15 | disposition home or self-care (01) ==
LOC: MW.ED 16:20 → MW.OB 17:32
PROVIDERS: ADMIT Surgery; ATTEND Surgery
DX: K64.3 Fourth degree hemorrhoids (principal); N76.0 Acute vaginitis; Z87.891 Personal history of nicotine dependence; Z79.899 Other long term (current) drug therapy; Z20.822 Contact with and (suspected) exposure to COVID-19
CPT/HCPCS: 36415; 46260; 59025; 80048; 85025; 87480; 87510; 87635; 87660; 96365; 96366; 96375; 96376; 99284; A9270; G0378; J0131; J0694; J1170; J2405; J2704; J3490; J7030; J7120; 00902; 99282; J3010; U0002

== ENCOUNTER 2021-10-23 05:04 | Inpatient (IN) | payer MEDICAID ==
[~2021-10-23 05:04] MED LIST: Acetaminophen/oxyCODONE 325-5 MG Tab PO PRN; Albuterol 0.083% 2.5 MG/3 ML Neb Soln NEB PRN; HYDROmorphone 1 MG/ML Syringe IVPUSH PRN; Metoclopramide 10 MG/2 ML SDV IVPUSH PRN; Morphine 4 MG/ML VIAL IVPUSH PRN; Naloxone 0.4 MG/ML SDV IVPUSH PRN; Ondansetron 4 MG/2 ML SDV IVPUSH PRN; diphenhydrAMINE 50 MG/ML SDV IVPUSH PRN; ePHEDrine 50 MG/ML SDV IVPUSH PRN; fentaNYL 100 MCG/2 ML SDV IVPUSH PRN
[2021-10-23] MEDS: Lactated Ringers 1,000 ML IV SCH ×4 (05:40→15:58)
[2021-10-23] MEDS ORDERED: Citric Acid/Sodium Citrate Solution 30 ML Cup PO ONE (06:07)
[2021-10-23] MEDS ORDERED: Sodium Chloride 0.9% 10 ML Syringe FLUSH PRN (06:07)
[2021-10-23] MEDS ORDERED: Sodium Chloride 0.9% 2.5 ML Syringe FLUSH PRN (06:07)
[2021-10-23] MEDS ORDERED: Sodium Chloride 0.9% 20 ML SDV IV PRN (06:07)
[2021-10-23] MEDS ORDERED: Oxytocin/0.9 % Sodium Chloride 30 UNIT/500 ML BAG IV SCH (06:15)
[2021-10-23] MEDS ORDERED: ceFAZolin 1 GM in Premix Bag 1 BAG IV ONE (06:23)
[2021-10-23] MEDS ORDERED: Morphine PF 10 MG/10 ML SDV ONE (07:26)
[2021-10-23] MEDS ORDERED: ceFAZolin 1 GM Vial ONE ×2 (07:26)
[2021-10-23] MEDS ORDERED: Ondansetron 4 MG/2 ML SDV ONE ×2 (07:26)
[2021-10-23] MEDS ORDERED: Oxytocin 10 Units/1 ML SDV ONE ×3 (07:26)
[2021-10-23] MEDS ORDERED: fentaNYL 100 MCG/2 ML SDV ONE (07:26)
[2021-10-23] MEDS ORDERED: Lidocaine 2% 100 MG/5 ML Syringe ONE (07:27)
[2021-10-23] MEDS ORDERED: Ropivacaine 0.5% 5 MG/ML 30 ML SDV ONE ×3 (07:28→08:17)
[2021-10-23] MEDS ORDERED: Midazolam 1 MG/ML 2 ML SDV ONE ×2 (08:14→08:25)
[2021-10-23] MEDS ORDERED: Octyl 2-Cyanoacrylate 1 Tube ONE ×2 (08:47)
[2021-10-23] MEDS ORDERED: Bisacodyl 10 MG Supp RECTAL PRN (08:56)
[2021-10-23] MEDS ORDERED: Aluminum Hydroxide/Magnesium Hydroxide/Simethicone XS Susp 30 ML Cup PO PRN (08:56)
[2021-10-23] MEDS ORDERED: Methylergonovine 0.2 MG/1 ML Amp IM PRN (08:56)
[2021-10-23] MEDS ORDERED: diphenhydrAMINE 50 MG/ML SDV IVPUSH PRN (08:56)
[2021-10-23] MEDS ORDERED: Oxytocin 10 Units/1 ML SDV IM PRN (08:56)
[2021-10-23] MEDS ORDERED: Ondansetron 4 MG/2 ML SDV IVPUSH PRN (08:56)
[2021-10-23] MEDS ORDERED: Tranexamic Acid 1,000 MG in Sodium Chloride 0.9% 100 ML IV PRN (08:56)
[2021-10-23] MEDS ORDERED: Misoprostol 200 MCG Tab RECTAL PRN (08:56)
[2021-10-23] MEDS ORDERED: Ketorolac 30 MG/ML SDV IVPUSH SCH (09:00)
[2021-10-23] MEDS: Acetaminophen/oxyCODONE 325-5 MG Tab PO PRN (14:42)
[2021-10-23] MEDS: Ketorolac 30 MG/ML SDV IVPUSH SCH ×2 (15:47→21:36)
[2021-10-23] MEDS: Simethicone 80 MG Tab.Chew PO SCH (17:47)
[2021-10-23] MEDS: Lanolin 100% Cream 7 GM Tube TOP PRN (21:37)
[2021-10-23] MEDS: Docusate Sodium 100 MG Cap PO SCH (21:37)
[2021-10-24] MEDS: Simethicone 80 MG Tab.Chew PO SCH ×4 (00:34→17:54)
[2021-10-24] MEDS: Acetaminophen/oxyCODONE 325-5 MG Tab PO PRN ×3 (00:35→19:30)
[2021-10-24] MEDS: Ketorolac 30 MG/ML SDV IVPUSH SCH ×2 (04:42→11:02)
[2021-10-24] MEDS ORDERED: Iron Sucrose Complex 500 MG in Sodium Chloride 0.9% 250 ML IV ONE (09:00)
[2021-10-24] MEDS: Docusate Sodium 100 MG Cap PO SCH (11:02)
[2021-10-25] MEDS: Acetaminophen/oxyCODONE 325-5 MG Tab PO PRN ×3 (00:28→09:14)
[2021-10-25] MEDS: Docusate Sodium 100 MG Cap PO SCH ×3 (00:29→09:17)
[2021-10-25] MEDS: Simethicone 80 MG Tab.Chew PO SCH ×2 (00:29→06:02)
[2021-10-25] MEDS: Ibuprofen 800 MG Tab PO PRN ×2 (02:17→10:40)
[2021-10-25] MEDS: Lanolin 100% Cream 7 GM Tube TOP PRN (05:05)
== END 2021-10-25 11:50 | disposition home or self-care (01) | DRG 788 ==
LOC: INTOOBSV 05:04 → MW.OB 05:04 → OBSVTOIN 08:19 → MW.OB 15:07
PROVIDERS: ADMIT Obstetrics & Gynecology; ATTEND Obstetrics & Gynecology
PROC: 10D00Z1 Extraction of Products of Conception, Low, Open Approach (ICD-10-PCS; principal; 2021-10-23)
DX: O34.211 Maternal care for low transverse scar from previous cesarean delivery (principal); Z37.0 Single live birth; Z20.822 Contact with and (suspected) exposure to COVID-19; O99.02 Anemia complicating childbirth; D50.9 Iron deficiency anemia, unspecified; Z87.891 Personal history of nicotine dependence; Z3A.39 39 weeks gestation of pregnancy
CPT/HCPCS: 36415; 59025; 82803; 85014; 85018; 85027; 86592; 86850; 86900; 86901; A9270-GY; J0131; J0690; J1756; J1885; J2250; J2274; J2370; J2405; J2590; J2765; J2795; J3010; J7050; J7120; U0002

== ENCOUNTER 2022-04-30 18:55 | Emergency (ER) | payer MEDICAID | END 2022-04-30 21:45 | disposition home or self-care (01) | LOC: MW.ED 18:55 | DX: J02.9 Acute pharyngitis, unspecified (principal); Z79.899 Other long term (current) drug therapy | CPT/HCPCS: 87651-QW; 99283 ==

== ENCOUNTER 2022-05-22 09:49 | Emergency (ER) | payer MEDICAID ==
[2022-05-22] MEDS ORDERED: prednisoLONE Soln 15 MG/5 ML UD Cup PO ONE (10:35)
[2022-05-22] MEDS ORDERED: Ibuprofen Susp 100 MG/5 ML 10 ML UD Cup PO ONE (10:35)
[2022-05-22] MEDS ORDERED: Acetaminophen 325 MG/10.15 ML ML PO ONE (10:35)
[2022-05-22 10:52] LABS: CORONAVIRUS COVID-19 NAA NEGATIVE (NEGATIVE); INFLUENZA A NAA NEGATIVE (NEGATIVE); INFLUENZA B NAA NEGATIVE (NEGATIVE); RESPIRATORY SYNCYTIAL VIR NAA NEGATIVE (NEGATIVE)
[2022-05-22] MEDS ORDERED: Penicillin G Benzathine 1,200,000 Units/2 ML Syringe IM ONE (11:00)
== END 2022-05-22 11:37 | disposition home or self-care (01) ==
LOC: MW.ED 09:49
DX: J02.0 Streptococcal pharyngitis (principal); Z20.822 Contact with and (suspected) exposure to COVID-19
CPT/HCPCS: 0241U; 87651; 96372; 99283; A9270; J0561

== ENCOUNTER 2022-06-14 13:03 | Day surgery (SDC) | payer MEDICAID ==
[2022-06-14] MEDS ORDERED: Sodium Chloride 0.9% 2.5 ML Syringe FLUSH PRN (13:46)
[2022-06-14] MEDS ORDERED: Sodium Chloride 0.9% 10 ML Syringe FLUSH PRN (13:46)
[2022-06-14] MEDS ORDERED: cefOXitin 2 GM in Premix Bag 1 BAG IV ONE (13:46)
[2022-06-14] MEDS ORDERED: Sodium Chloride 0.9% 20 ML SDV IV PRN (13:46)
[2022-06-14] MEDS ORDERED: Lactated Ringers 1,000 ML IV SCH (14:00)
[2022-06-14] MEDS ORDERED: Cyclobenzaprine 10 MG Tab PO PRN (14:06)
[2022-06-14] MEDS: HYDROmorphone 1 MG/ML Syringe IVPUSH PRN (15:09)
[2022-06-14] MEDS ORDERED: Chloroprocaine 10 MG/ML 5 ML Amp ONE (15:19)
[2022-06-14] MEDS ORDERED: Lidocaine 2% 5 ML SDV ONE (15:22)
[2022-06-14] MEDS ORDERED: fentaNYL 100 MCG/2 ML SDV ONE (15:22)
[2022-06-14] MEDS ORDERED: Propofol 200 MG/20 ML SDV ONE (15:22)
[2022-06-14] MEDS ORDERED: Naloxone 0.4 MG/ML SDV IVPUSH PRN (15:48)
[2022-06-14] MEDS ORDERED: Metoclopramide 10 MG/2 ML SDV IVPUSH PRN (15:48)
[2022-06-14] MEDS ORDERED: Morphine 2 MG/ML SYRINGE IVPUSH PRN (15:48)
[2022-06-14] MEDS ORDERED: Albuterol 0.083% 2.5 MG/3 ML Neb Soln NEB PRN (15:48)
[2022-06-14] MEDS ORDERED: HYDROmorphone 1 MG/ML Syringe IVPUSH PRN (15:48)
[2022-06-14] MEDS ORDERED: fentaNYL 50 MCG/ML SDV IVPUSH PRN (15:48)
[2022-06-14] MEDS ORDERED: Ondansetron 4 MG/2 ML SDV IVPUSH PRN ×2 (15:48→19:51)
[2022-06-14] MEDS ORDERED: Famotidine 20 MG/2 ML SDV ONE (15:52)
[2022-06-14] MEDS ORDERED: Bupivacaine 0.5% 30 ML SDV ONE (16:04)
[2022-06-14] MEDS ORDERED: Lidocaine 2% 11 ML Jelly Filled Syringe ONE (16:05)
[2022-06-14] MEDS ORDERED: Phenylephrine 1% 10 MG/ML SDV ONE (16:22)
[2022-06-14] MEDS ORDERED: Ketorolac 30 MG/ML SDV ONE (16:23)
[2022-06-14] MEDS ORDERED: Ondansetron 4 MG/2 ML SDV ONE (16:38)
[2022-06-14] MEDS ORDERED: ePHEDrine 50 MG/ML SDV ONE (16:51)
[2022-06-14] MEDS: Cyclobenzaprine 10 MG Tab PO SCH (18:21)
[2022-06-14] MEDS: Ketorolac 30 MG/ML SDV IVPUSH SCH (23:06)
[2022-06-15] MEDS: Cyclobenzaprine 10 MG Tab PO SCH ×2 (02:15→10:36)
[2022-06-15] MEDS: Acetaminophen/oxyCODONE 325-5 MG Tab PO PRN ×2 (02:25→08:43)
[2022-06-15] MEDS: HYDROmorphone 1 MG/ML Syringe IVPUSH PRN (04:54)
[2022-06-15] MEDS: Ketorolac 30 MG/ML SDV IVPUSH SCH (06:10)
[2022-06-15] MEDS ORDERED: HYDROmorphone 2 MG Tab PO PRN (10:55)
[2022-06-15] MEDS ORDERED: Polyethylene Glycol 3350 Powder 17 GM Packet PO SCH (11:00)
[2022-06-15] MEDS ORDERED: Docusate Sodium 100 MG Cap PO SCH (11:00)
[2022-06-15] MEDS ORDERED: Lidocaine 5% Oint 35.44 GM Tube TOP SCH (11:00)
== END 2022-06-15 13:29 | disposition home or self-care (01) ==
LOC: MW.ED 13:03 → MW.SDS 15:21 → MW.OB 18:21 → MW.SDS 06-15 13:29
PROVIDERS: ATTEND Surgery
DX: K64.8 Other hemorrhoids (principal); D64.9 Anemia, unspecified; G43.909 Migraine, unspecified, not intractable, without status migrainosus; K64.5 Perianal venous thrombosis; K42.9 Umbilical hernia without obstruction or gangrene; Z98.890 Other specified postprocedural states
CPT/HCPCS: 46260; 96374; 96375; 99284; A9270; J0131; J0694; J1170; J1885; J2370; J2400; J2405; J2704; J3010; J3490; J7120